=== PATIENT | female | born 1965 | race Caucasian/White ===

== ENCOUNTER → 2017-10-23 07:56 | Outpatient (CLI) | payer OTHER, SELFPAY ==
--- NOTE | 2017-10-23 08:00 | HPBI_ITS ---
MAMMOGRAPHY - BILATERAL SCREENING REASON FOR EXAM: Female, 51 years old. Routine annual screening examination. PERTINENT HISTORY: Personal history of breast cancer. Prior left lumpectomy with radiation and chemotherapy. TECHNIQUE: Digital bilateral breast brandon (3D mammographic acquisition) in the CC and MLO projections. 2-D mediolateral oblique (MLO) and craniocaudad (CC) views of both breasts were obtained. CAD: Full Field Digital Mammography with Computer Added Detection was performed. COMPARISON: Comparison is made with prior examination dated March 26, 2017 and June 20, 2015. FINDINGS: Breast Composition: The breasts are heterogeneously dense, which may obscure small masses. Surgical clips are seen in the deep upper lateral portion of the left breast at the site of prior lumpectomy. There is evidence of architectural distortion and mild breast deformity in keeping with the prior surgery. Stable thickening of the skin of the left breast. There has been no change. No other significant abnormalities are identified. There has been no significant change since the prior study. HPBI/SCREENING MAMM (CAD), BILAT IMPRESSION: Stable bilateral screening mammogram. Yearly follow-up mammogram recommended. (A) ASSESSMENT CATEGORY: BIRADS Category 2: Benign. A letter regarding these results will be sent to the patient by the facility within 30 days. Approximately 10% of breast cancers are not detected by mammography. A normal mammogram should not delay biopsy of a clinically suspicious abnormality. [id number] Electronically Signed: Berto Pan MD at 9:16 EST Tel [phone], Service support ,
== END ==
PROVIDERS: Family Provider Family Medicine; PCP Family Medicine; Visit Provider Family Medicine
DX: Z85.3 Personal history of malignant neoplasm of breast (principal); Z12.31 Encounter for screening mammogram for malignant neoplasm of breast
CPT/HCPCS: 77063; 77067

== ENCOUNTER → 2019-02-10 | Outpatient (CLI) | payer BC, SELFPAY ==
--- NOTE | 2019-02-10 14:49 | BI_ITS ---
MAMMOGRAPHY - BILATERAL SCREENING REASON FOR EXAM: Female, 53 years old. Routine annual screening examination. PERTINENT HISTORY: Personal history of breast cancer. Prior left lumpectomy with radiation and chemotherapy. TECHNIQUE: Digital bilateral breast nancie (3D mammographic acquisition) in the CC and MLO projections. 2-D mediolateral oblique (MLO) and craniocaudad (CC) views of both breasts were obtained. CAD: Full Field Digital Mammography with Computer Added Detection was performed. COMPARISON: Comparison is made with prior study dated October 23, 2017 and September 06, 2016. FINDINGS: Breast Composition: The breasts are heterogeneously dense, which may obscure small masses. There are no dominant masses or suspicious calcifications. Once again, the patient status post lumpectomy in the deep upper outer aspect of the left breast. Postsurgical changes are seen. Overlying skin thickening and breast deformity. No other significant abnormalities are identified. There has been no significant change since the prior study. BI/SCREEN MAMM (CAD) W/NANCIE BILAT IMPRESSION: Stable bilateral screening mammogram. Yearly follow-up mammogram recommended. (A) ASSESSMENT CATEGORY: BIRADS Category 2: Benign. A letter regarding these results will be sent to the patient by the facility within 30 days. Approximately 10% of breast cancers are not detected by mammography. A normal mammogram should not delay biopsy of a clinically suspicious abnormality. [id number] Electronically Signed: Berto Pan, at 16:00 EDT , Service support ,
== END | disposition home or self-care (01) ==
LOC: OPBI 14:47
PROVIDERS: Family Provider Family Medicine; PCP Family Medicine; Referring Provider Family Medicine; Visit Provider Family Medicine
DX: C50.412 Malignant neoplasm of upper-outer quadrant of left female breast (principal); Z12.31 Encounter for screening mammogram for malignant neoplasm of breast; Z17.0 Estrogen receptor positive status [ER+]
CPT/HCPCS: 77063; 77067

== ENCOUNTER → 2020-03-08 12:00 | Outpatient (CLI) | payer BC, SELFPAY | PROVIDERS: PCP Family Medicine; Visit Provider Family Medicine Hospice and Palliative Medicine | DX: Z11.59 Encounter for screening for other viral diseases (principal) | CPT/HCPCS: 87635; G2023; U0003 ==

== ENCOUNTER → 2020-05-06 14:14 | Outpatient (CLI) | payer BC, SELFPAY ==
--- NOTE | 2020-05-06 14:27 | BI_ITS ---
MAMMOGRAPHY - BILATERAL SCREENING REASON FOR EXAM: Female, 54 years old. Routine annual screening examination. PERTINENT HISTORY: Personal history of breast cancer. Prior left lumpectomy with chemotherapy and radiation therapy. TECHNIQUE: Digital bilateral breast nancie (3D mammographic acquisition) in the CC and MLO projections. 2-D mediolateral oblique (MLO) and craniocaudad (CC) views of both breasts were obtained. CAD: Full Field Digital Mammography with Computer Added Detection was performed. COMPARISON: Comparison is made with prior study dated 02/10/2019 and 10/23/2017. FINDINGS: Breast Composition: The breasts are heterogeneously dense, which may obscure small masses. There are no dominant masses or suspicious calcifications. Stable deformity and architectural distortion in the upper lateral portion of the left breast with overlying skin thickening and skin changes. Stable small benign-appearing bilateral axillary lymph nodes. No other significant abnormalities are identified. There has been no significant change since the prior study. BI/SCREEN MAMM (CAD) W/NANCIE BILAT IMPRESSION: Stable bilateral screening mammogram. Yearly follow-up mammogram recommended. (A) ASSESSMENT CATEGORY: BIRADS Category 2: Benign. A letter regarding these results will be sent to the patient by the facility within 30 days. Approximately 10% of breast cancers are not detected by mammography. A normal mammogram should not delay biopsy of a clinically suspicious abnormality. [id number] Electronically Signed: Berto Pan, at 15:19 EDT , Service support ,
== END ==
PROVIDERS: PCP Family Medicine; Referring Provider Nurse Practitioner Women's Health; Visit Provider Nurse Practitioner Women's Health
DX: Z12.31 Encounter for screening mammogram for malignant neoplasm of breast (principal)
CPT/HCPCS: 77063; 77067

== ENCOUNTER 2020-07-15 18:40 | Emergency (ER) | payer BC, SELFPAY ==
[2020-07-15 18:41] VITALS: BP 183/92; PULSE 88; RESP 16; TEMP 36.3; O2SAT 99; BMI 29.2
--- NOTE | 2020-07-15 19:43 | CT_ITS ---
STUDY: CT ABDOMEN AND PELVIS WITHOUT CONTRAST REASON FOR EXAM: Female, 54 years old. RT FLANK PAIN, ONSET LAST NIGHT. RADIATION DOSAGE (If Supplied By Facility): CTDIvol = ( 11.42 ) mGy, DLP = ( 567.96 ) mGycm TECHNIQUE: Transaxial images were obtained from the dome of the diaphragm to the symphysis pubis without oral contrast, and without intravenous contrast. Sagittal and coronal images were reconstructed. Individualized dose optimization techniques were used for this CT. COMPARISON: None. FINDINGS: The visualized lung bases are unremarkable. The visualized portions of the heart are within normal limits. Multiple small simple cysts of the liver. Otherwise normal liver. Normal gallbladder and extrahepatic biliary system. Normal spleen. Normal pancreas. Normal bilateral adrenal glands. Normal size of the right kidney without hydronephrosis or stones. Slight fullness of the right renal pelvis and proximal ureter with slight stranding around the ureter. Normal left kidney. Normal visualized stomach. Normal small intestine. Normal colon. The appendix is visualized and appears normal. Normal abdominal aorta. Normal inferior vena cava. Normal retroperitoneum. Normal urinary bladder. One small bubble of air in the urinary bladder most likely secondary to catheterization. Negative for bladder wall thickening or perivesicular stranding. Negative for pelvic mass or free fluid of the pelvis. Multiple surgical clips at the cornu of the uterus on the right side. Normal abdominal wall. There are diffuse degenerative changes of the visualized lumbar spine. CT/Abdomen/Pelvis without Cont IMPRESSION: Normal size of the kidneys bilaterally without hydronephrosis, renal, ureteral or bladder stones. Slight prominence of the right renal pelvis and proximal ureter with slight stranding in the periureteral fat and peripelvic fat can correlate with acute pyelonephritis. Normal left kidney. Several simple hepatic cysts. No additional imaging recommended. Otherwise normal abdominal and pelvic CT exam. Electronically Signed: Magaly Lundy MD at 20:34 EST , Service support ,
--- NOTE | 2020-07-15 19:46 | ED.DCSUM_ITS ---
- ER Visit Summary Date of Service: 07/15/20 Chief Complaint: Right flank pain History of Present Illness: The patient is a 54 F who presents with right flank pain that began yesterday. Patient states it began her right flank area. Patient states today she noted some pain in her right lower abdomen. Patient describes her pain as sharp and stabbing. Patient states the pain waxes and wanes but is constant. Patient states nothing makes it worse. Patient states it is better when she walks. Patient denies any nausea or vomiting. Patient states she still has a good appetite. Patient denies any dysuria or hematuria. Patient denies any fevers or chills. Physical Examination: Vital signs are stable. Patient is afebrile. Patient is in no acute distress. Oral mucosa is pink and moist. Neck is supple. Trachea is midline. There is no JVD. Heart was regular rate and rhythm. Lungs are clear and equal bilaterally. Abdomen is soft. Bowel sounds are normal. There is some mild right lower quadrant tenderness. There is no rebound or guarding noted. Rovsing sign was negative. Obturator sign was negative. There is some right CVA tenderness. Cranial nerves II through XII are intact. There are no focal motor or sensory deficits noted. Extremities are intact. There is no calf tenderness or edema. Test Results: CBC shows a mild leukocytosis of 11.1. Basic metabolic profile was within normal limits. Urinalysis shows leukocyte esterase of 500 with 50- [address] scan of the abdomen and pelvis was obtained. There is mild prominence of the right renal pelvis and right proximal ureter. There is mild stranding in the periureteral and perinephric fat. This may be consistent with pyelonephritis. This was interpreted by the radiologist and reviewed by myself. Emergency Department Course and Treatment: Patient was given IV fluids and Rocephin here. Patient was given a prescription for Cipro. Patient was instructed to drink plenty of fluids. Patient was instructed to follow-up with her primary care physician in 3-5 days. Patient understood and was agreeable with the plan. All questions were answered. Disposition: Discharge home Impression: Right pyelonephritis This note was generated with [employer] dictation software. It may contain incorrect words, spelling, and punctuation that were not noted in review of the chart prior to signing ED Disposition - Plan for ED Patient: Disposition: Home or Assisted Living Diagnosis: Pyelonephritis of right kidney Instructions: ED Pyelonephritis Female Adult Prescriptions: Ciprofloxacin [Cipro] 500 mg PO BID #14 tab Prescription Printed Referrals: Dario Prasad III, MD [Primary Care Provider] - 3-5 Days
[2020-07-15 19:54] LABS: Mucous, Urine 0 SEEN /hpf (<or=2+)
[2020-07-15] MEDS: Ketorolac 30 MG/ML Syringe IV (19:54)
[2020-07-15 19:57] LABS: Color, Urine Yellow (Yellow); Glucose, Dipstick Normal (Normal); Ketone-Dipstick Negative (Negative); Leukocyte Esterase-Dipstick 500 /ul (Negative); Nitrite-Dipstick Negative (Negative); Occult Blood-Urine 50 /ul (Negative); Protein-Dipstick 30 mg/dl (Negative); Urine Bilirubin Dipstick Negative (Negative); Urine Clarity Sl. Cloudy (Clear); Urine Urobilinogen Normal (Normal); Urine pH 6.5 (5.0 - 8.0)
[2020-07-15 20:04] LABS: Absolute Lymphocyte Count 1.78 X10^3/uL (0.83-4.51); Absolute Neutrophil Count 8.4 X10^3/uL (2.0-7.7); Basophil# 0.03 X10^3/uL; Basophil% 0.3 % (0-1); Eosinophil# 0.02 X10^3/uL; Eosinophils% 0.2 % (0-5); Hematocrit 39.4 % (37-47); Lymphocyte # 1.78 X10^3/ul (4.0); Mean Corpuscular Hgb 28.8 pg (27.0-32.0); Mean Corpuscular Volume 87.2 fL (81-99); Monocyte# 0.86 X10^3/uL; Monocyte% 7.7 % (0-10); NRBC Flagged by Analyzer 0 % (0-5); Neutrophil % 75.4 % (47-70); Platelet Count 256 K/mm3 (150-450); RBC Distribution Width CV 12.4 % (11.6-14.6); Red Blood Count 4.52 M/mm3 (4.2-5.4); White Blood Count 11.1 K/mm3 (4.4-11.0)
[2020-07-15] MEDS: 0.9% Normal Saline 1,000 ML 250 ML IV (20:05)
[2020-07-15 20:37] LABS: Anion Gap 7 (5-15); BUN 14 mg/dL (7-18); BUN/Creat Ratio 16.8 RATIO (10-20); Calcium,Total 8.8 mg/dL (8.5-10.1); Chloride 104 mmol/L (98-107); Creatinine, Serum 0.83 mg/dL (0.55-1.02); EST Glomerular Filtration Rate 76 mL/min (>60); Est Glom Filt Rate - Afr Amer 92 mL/min (>60); Estimated Creatinine Clearance 68.47 ml/min; Glucose 107 mg/dL (74-106); Potassium 3.7 mmol/L (3.5-5.1); Sodium Level 139 mmol/L (136-145)
[2020-07-15 20:40] LABS: Bacteria 4+ /hpf (None Seen); Hyaline Cast 0-5 SEEN /lpf (0-5); White Blood Cells 50-100 SEEN /hpf (0-5)
[2020-07-15 20:42] LABS: Red Blood Cells-Urine 0-5 SEEN /hpf (0-5); Squamous Epithelial Cells - UA 0-5 SEEN /hpf (5-10)
[2020-07-15 20:45] LABS: Transitional Epithelial - Ur 0-5 SEEN /hpf (0-5)
[2020-07-15] MEDS: Ceftriaxone 1 GM/50 ML BAG IV (21:40)
[2020-07-15 22:18] VITALS: BP 150/74; PULSE 68; RESP 14; O2SAT 98
== END 2020-07-15 22:18 | disposition home or self-care (01) ==
PROVIDERS: Emergency Provider Emergency Medicine; PCP Family Medicine
DX: N10 Acute pyelonephritis (principal); M79.7 Fibromyalgia; Z85.3 Personal history of malignant neoplasm of breast
CPT/HCPCS: 74176; 80048; 81001; 85025; 96361; 96365; 96375; 99284; J7030; A4216

== ENCOUNTER → 2021-06-02 15:04 | Outpatient (CLI) | payer BC, SELFPAY ==
--- NOTE | 2021-06-02 15:05 | BI_ITS ---
MAMMOGRAPHY - BILATERAL SCREENING 3-D TOMOSYNTHESIS REASON FOR EXAM: Female, 55 years old. Breast cancer screening PERTINENT HISTORY: No significant family history. TECHNIQUE: 2-D mammograms and 3-D Tomosynthesis of the breast (s) were performed. CAD was performed. COMPARISON: 05/06/2020 FINDINGS: The breast composition is Extermely dense tissue. Scattered benign calcifications are seen. No dense spiculated masses or suspicious microcalcifications are identified. No architectural distortion is identified. There is no skin thickening or retraction. There has been no significant change since the prior study. Lumpectomy changes in the upper outer quadrant left breast. BI/SCRN MAMM (CAD)W/NANCIE BILAT IMPRESSION: No mammographic signs of malignancy. Routine yearly mammograms recommended. ASSESSMENT CATEGORY: BIRADS Category 2: Benign. A letter regarding these results will be sent to the patient by the facility within 30 days. FOLLOW UP RECOMMENDATION: Yearly follow up mammogram recommended. (A) Approximately 10% of breast cancers are not detected by mammography. A normal mammogram should not delay biopsy of a clinically suspicious abnormality. Electronically Signed: Bernardino Bar MD at 10:50 EDT Tel , Service support ,
== END ==
PROVIDERS: PCP Family Medicine; Referring Provider Nurse Practitioner Women's Health; Visit Provider Nurse Practitioner Women's Health
DX: Z12.31 Encounter for screening mammogram for malignant neoplasm of breast (principal)
CPT/HCPCS: 77063; 77067

== ENCOUNTER → 2022-06-06 | Outpatient (CLI) | payer BC, SELFPAY ==
--- NOTE | 2022-06-06 07:20 | BI_ITS ---
MAMMOGRAPHY - BILATERAL SCREENING REASON FOR EXAM: Female, 56 years old. Routine annual screening examination. PERTINENT HISTORY: Personal history of breast cancer. Prior left lumpectomy and radiation treatment. TECHNIQUE: Digital bilateral breast nancie (3D mammographic acquisition) in the CC and MLO projections. 2-D mediolateral oblique (MLO) and craniocaudad (CC) views of both breasts were obtained. CAD: Full Field Digital Mammography with Computer Added Detection was performed. COMPARISON: Comparison is made with prior study dated 06/02/2021 and 05/06/2020. FINDINGS: Breast Composition: The breasts are heterogeneously dense, which may obscure small masses. There are no dominant masses or suspicious calcifications. The patient is status post lumpectomy in the deep upper lateral aspect of the left breast with resultant of postoperative scarring and deformity. This is unchanged. Stable small benign-appearing axillary lymph nodes. No other significant abnormalities are identified. There has been no significant change since the prior study. BI/SCRN MAMM (CAD)W/NANCIE BILAT IMPRESSION: Stable bilateral screening mammogram. Yearly follow-up mammogram recommended. (A) ASSESSMENT CATEGORY: BIRADS Category 2: Benign. A letter regarding these results will be sent to the patient by the facility within 30 days. Approximately 10% of breast cancers are not detected by mammography. A normal mammogram should not delay biopsy of a clinically suspicious abnormality. [id number] Electronically Signed: Berto Pan MD at 8:30 EDT ,
== END | disposition home or self-care (01) ==
LOC: OPBI 07:17
PROVIDERS: PCP Family Medicine; Visit Provider Family Medicine
DX: Z12.31 Encounter for screening mammogram for malignant neoplasm of breast (principal); Z85.3 Personal history of malignant neoplasm of breast
CPT/HCPCS: 77063; 77067

== ENCOUNTER → 2023-06-13 | Outpatient (CLI) | payer BC, SELFPAY ==
--- NOTE | 2023-06-13 07:54 | BI_ITS ---
MAMMOGRAPHY - BILATERAL SCREENING REASON FOR EXAM: Female, 57 years old. Routine annual screening examination. PERTINENT HISTORY: Personal history of breast cancer. Prior left lumpectomy with radiation and chemotherapy. TECHNIQUE: Digital bilateral breast nancie (3D mammographic acquisition) in the CC and MLO projections. 2-D mediolateral oblique (MLO) and craniocaudad (CC) views of both breasts were obtained. CAD: Full Field Digital Mammography with Computer Added Detection was performed. COMPARISON: Comparison is made with prior study done June 06, 2022 and June 02, 2021. FINDINGS: Breast Composition: The breasts are heterogeneously dense, which may obscure small masses. There are no dominant masses or suspicious calcifications. Once again, the patient is status post lumpectomy in the deep upper lateral aspect of the left breast with resultant architectural distortion and breast deformity. A surgical clip is also seen in the left axilla. No other significant abnormalities are identified. There has been no significant change since the prior study. BI/SCRN MAMM (CAD)W/NANCIE BILAT IMPRESSION: Stable bilateral screening mammogram. Yearly follow-up mammogram recommended. (A) ASSESSMENT CATEGORY: BIRADS Category 2: Benign. A letter regarding these results will be sent to the patient by the facility within 30 days. Approximately 10% of breast cancers are not detected by mammography. A normal mammogram should not delay biopsy of a clinically suspicious abnormality. [id number] Electronically Signed: Berto Pan MD at 12:23 EDT ,
== END | disposition home or self-care (01) ==
LOC: OPBI 07:53
PROVIDERS: PCP Family Medicine; Referring Provider Nurse Practitioner Women's Health; Visit Provider Nurse Practitioner Women's Health
DX: Z12.31 Encounter for screening mammogram for malignant neoplasm of breast (principal); Z85.3 Personal history of malignant neoplasm of breast
CPT/HCPCS: 77063; 77067

== ENCOUNTER → 2023-08-05 | Outpatient (CLI) | payer BC, SELFPAY ==
[2023-08-08 09:09] LABS: HPV APTIMA, High Risk Negative (Negative)
== END | disposition home or self-care (01) ==
LOC: LAB 11:31 → LABSPEC 11:31
PROVIDERS: PCP Family Medicine; Referring Provider Nurse Practitioner Women's Health; Visit Provider Nurse Practitioner Women's Health
DX: Z12.4 Encounter for screening for malignant neoplasm of cervix (principal)
CPT/HCPCS: 87624; 88175; G0145

== ENCOUNTER → 2024-06-30 | Outpatient (CLI) | payer BC, SELFPAY ==
--- NOTE | 2024-06-30 09:55 | BI_ITS ---
MAMMOGRAPHY - BILATERAL SCREENING REASON FOR EXAM: Female, 58 years old. Routine annual screening examination. PERTINENT HISTORY: Personal history of breast cancer. Prior left lumpectomy and radiation. TECHNIQUE: Digital bilateral breast nancie (3D mammographic acquisition) in the CC and MLO projections. 2-D mediolateral oblique (MLO) and craniocaudad (CC) views of both breasts were obtained. CAD: Full Field Digital Mammography with Computer Added Detection was performed. COMPARISON: Comparison is made with prior study dated June 13, 2023 and June 06, 2022. FINDINGS: Breast Composition: The breasts are heterogeneously dense, which may obscure small masses. There are no dominant masses or suspicious calcifications. The patient is status post lumpectomy in the deep upper lateral aspect of the left breast with resultant deformity of the left breast and overlying skin thickening most likely secondary to prior radiation. Surgical clips seen in the left axilla. No other significant abnormalities are identified. There has been no significant change since the prior study. BI/SCRN MAMM (CAD)W/NANCIE BILAT IMPRESSION: Stable bilateral screening mammogram. Yearly follow-up mammogram recommended. (A) ASSESSMENT CATEGORY: BIRADS Category 2: Benign. A letter regarding these results will be sent to the patient by the facility within 30 days. Approximately 10% of breast cancers are not detected by mammography. A normal mammogram should not delay biopsy of a clinically suspicious abnormality. [id number] Electronically Signed: Berto Pan MD at 11:54 EDT ,
--- OUTSIDE RECORDS SUMMARY | 2024-06-30 11:19 | XMS RPT_ITS | CCD ---
Author Organization [facility] Care Team Providers Care Oncology Navigator Name Role Phone Danial Polo MD Primary Care Provider DANIAL POLO Referring Unavailable DANIAL POLO Primary Care Unavailable Danial Polo MD Primary Care Provider Danial Polo MD Primary Care Provider DANIAL POLO Primary Care Unavailable SYLVIE DECKER Attending Unavailable DANIAL POLO Attending Unavailable DANIAL POLO Primary Care Unavailable DANIAL POLO Referring Unavailable DANIAL POLO Primary Care Unavailable DANIAL POLO Primary Care Unavailable ANA LAURA GRACE Attending Unavailable DANIAL POLO Referring Unavailable DANIAL POLO Attending Unavailable DANIAL POLO Primary Care Unavailable Medications Current Medications Medication Drug Class(es) Dates Sig (Normalized) Sig (Original) CPAP (8 sources) Start: 12-05-2022 CPAP Indications: LORI (obstructive sleep apnea) Initiate Auto PAP @ 9-20 cm of water with humidification. Mask (per patient preference) optional chin strap (if indicated) , filters, tubing, humidifier and lifetime supplies. 1 Each 0 12/05/2022 Active Comment on above: Initiate Auto PAP @ 9-20 cm of water with humidification. Mask (per patient preference) optional chin strap (if indicated) , filters, tubing, humidifier and lifetime supplies. 24 hr desvenlafaxine succinate 50 mg extended release oral tablet (6 sources) Serotonin and Norepinephrine Reuptake Inhibitor Start: 03-23-2024 End: 03-23-2024 take 1 tablet by mouth once daily desvenlafaxine ER (PRISTIQ) 100 mg 24 hr tablet Take 1 tablet by mouth once daily. 30 tablet 5 03/23/2024 03/23/2024 Discontinued Start: 09-27-2023 End: 03-23-2025 take 2 tablets by mouth once daily desvenlafaxine ER (PRISTIQ) 50 mg 24 hr tablet Indications: Fibromyalgia Take 2 tablets by mouth once daily. 90 tablet 3 03/23/2024 03/23/2025 Active Comment on above: Take 2 tablets by mo uth once daily. Take 1 tablet by melly th once daily. losartan potassium 100 mg oral tablet (20 sources) Angiotensin 2 Receptor Darell Start: End: take 1 tablet by mouth once daily losartan (COZAAR) 100 mg tablet Indications: Primary hypertension Take 1 tablet by mouth once daily. 90 tablet 3 03/23/2024 03/23/2025 Active Start: 03-23-2024 End: 03-23-2024 take 2 tablets by mouth once daily losartan (COZAAR) 50 mg tablet Indications: Primary hypertension Take 2 tablets by mouth once daily. 180 tablet 3 03/23/2024 03/23/2024 Discontinued Start: 09-27-2023 End: 03-25-2024 take 1 tablet by mouth once daily losartan (COZAAR) 50 mg tablet Take 1 tablet by mouth once daily. 30 tablet 5 03/23/2024 03/23/2024 Discontinued Start: 03-27-2023 End: 09-23-2023 take 1 tablet by mouth once daily losartan (COZAAR) 50 mg tablet Take 1 tablet by mouth once daily. 30 tablet 5 03/27/2023 09/23/2023 Active Start: 10-23-2022 take 1 tablet by melly th once daily losartan (COZAAR) 50 mg tablet Take 1 tablet by mouth once daily. 30 tablet 2 10/23/2022 Active Start: 09-24-2022 End: 09-24-2023 take 1 tablet by mouth once daily losartan (COZAAR) 25 mg tablet Indications: Primary hypertension Take 1 tablet by mouth once daily. 30 tablet 11 09/24/2022 09/24/2023 Active Comment on above: Take 1 tablet by melly th once daily. perflutren lipid microspheres 1.3 mL in NaCl (PF) 0.9% 10 mL injection (DEFINITY) (17 sources) Start: 03-22-20 End: 06-21-20 perflutren lipid microspheres 1.3 mL in NaCl (PF) 0.9% 10 mL injection (DEFINITY) 125 ml sodium chloride 9 mg/ml prefilled syringe (17 sources) Start: 03-22-20 End: 06-21-20 sodium chloride 0.9 % (flush) 10 mL (BD POSIFLUSH) 24 hr venlafaxine 150 mg extended release oral capsule (20 sources) Serotonin and Norepinephrine Reuptake Inhibitor Start: 03-27-20 End: 09-23-19 take 1 capsule by mouth once daily venlafaxine ER (EFFEXOR XR) 150 mg 24 hr capsule Indications: Fibromyalgia , Central pain syndrome Take 1 capsule by mouth once daily. 30 capsule 5 03/27/2023 09/23/2023 Active Start: 04-30-2022 End: 07-25-2022 take 1 capsule by mouth once daily venlafaxine ER (EFFEXOR XR) 150 mg 24 hr capsule Indications: Central pain syndrome , Fibromyalgia Take 1 capsule by mouth once daily. 90 capsule 3 07/25/2022 Active Start: 08-29-2021 End: 04-28-2022 take 1 capsule by mouth once daily venlafaxine ER (EFFEXOR XR) 150 mg 24 hr capsule Indications: Central pain syndrome , Fibromyalgia Take 1 capsule by mouth once daily. 90 capsule 3 08/29/2021 04/28/2022 Discontinued Comment on above: Take 1 capsule by [facility] once daily. Completed/Discontinued Medications Medication Drug Class(es) Dates Sig (Normalized) Sig (Original) cholecalciferol 0.05 mg oral tablet (19 sources) Vitamin D take 1 tablet by mouth once daily cholecalciferol (VITAMIN D3) 50 mcg (2,000 unit) tablet Take 1 tablet by mouth once daily. 0 Active Comment on above: [facility] polyethylene glycol 3350 681657 mg / potassium chloride 2970 mg / sodium bicarbonate 6740 mg / sodium chloride 5860 mg / sodium sulfate 28330 mg powder for oral solution (3 sources) Osmotic Laxative Start: 03-28-2022 End: 04-20-2022 peg 3350-Electrolytes (GOLYTELY) 236-22.74-6.74 -5.86 gram suspension Indications: Screening for colon cancer Refer to printed prep instructions from your provider. 4000 mL 0 03/28/2022 04/20/2022 Discontinued Comment on above: Refer to printed pre p instructions from your provider. Problems Active Problems Problem Classification Problem Date Documented Date Episodic/Chronic Cancer of breast (20 sources) Malignant neoplasm of upper-outer quadrant of female breast; Translations: [Malignant neoplasm of upper-outer quadrant of unspecified female breast] Onset: 11-05-2007 06-13-2010 Chronic Disorders of lipid metabolism (20 sources) Hyperlipidemia; Translations: [Hyperlipidemia, unspecified] Onset: 10-11-2016 Chronic Essential hypertension (10 sources) Essential hypertension; Translations: [Essential (primary) hypertension] Onset: 03-27-2023 Chronic Immunizations and screening for infectious disease (6 sources) Patient encounter status; Translations: [Encounter for screening for human immunodeficiency virus [HIV]] Episodic Nutritional deficiencies (20 sources) Vitamin D deficiency; Translations: [Vitamin D deficiency, unspecified] Onset: 12-08-2008 Resolved: 12-08-2008 Chronic Other and unspecified benign neoplasm (1 source) History of polyp of colon; Translations: [Personal history of colonic polyps] Episodic Residual codes; unclassified (3 sources) Obstructive sleep apnea syndrome; Translations: [Obstructive sleep apnea (adult) (pediatric)] Chronic Residual codes; unclassified (1 source) Obstructive sleep apnea (adult) (pediatric); Translations: [LORI (obstructive sleep apnea)] Onset: 11-30-2022 Chronic Residual codes; unclassified (1 source) Primary central sleep apnea; Translations: [Central sleep apnea] Onset: 11-30-2022 Chronic Residual codes; unclassified (7 sources) Sleep apnea; Translations: [Sleep apnea, unspecified] Onset: 11-30-2022 03-27-2023 Chronic Residual codes; unclassified (1 source) Sleep apnea, unspecified; Translations: [Sleep apnea, unspecified type] Onset: 03-27-2023 Chronic Past or Other Problems Problem Classification Problem Date Documented Date Episodic/Chronic Cancer of breast (20 sources) History of malignant neoplasm of breast; Translations: [Personal history of malignant neoplasm of breast] Onset: 11-15-2015 Episodic Heart valve disorders (20 sources) Functional heart murmur ; Translations: [Benign and innocent cardiac murmurs] Onset: 03-22-2022 Episodic Malignant neoplasm without specification of site (10 sources) Malignant adenomatous neoplasm; Translations: [Malignant (primary) neoplasm, unspecified] Onset: 04-12-2022 Resolved: 09-27-2023 10-23-2022 Chronic Nonmalignant breast conditions (2 sources) Breast lump; Translations: [Unspecified lump in unspecified breast] Onset: 10-31-2007 Resolved: 04-01-2009 04-01-2009 Episodic Other and unspecified benign neoplasm (16 sources) Benign adenomatous neoplasm; Translations: [Benign neoplasm, unspecified site] Onset: 09-24-2022 Episodic Other and unspecified benign neoplasm (1 source) Benign neoplasm, unspecified site; Translations: [Tubulovillous adenoma] Onset: 09-27-2023 Episodic Other connective tissue disease (20 sources) Fibromyalgia; Translations: [Fibromyalgia] Onset: 10-03-2017 Episodic Other connective tissue disease (2 sources) Enthesopathy of hip region; Translations: [Other specified enthesopathies of unspecified lower limb, excluding foot] Onset: 06-04-2008 Resolved: 09-26-2021 09-26-2021 Episodic Other connective tissue disease (2 sources) Muscle pain; Translations: [Myalgia, unspecified site] Onset: 12-12-2009 Resolved: 09-26-2021 09-26-2021 Episodic Other connective tissue disease (1 source) Fibromyalgia; Translations: [Fibromyalgia] Onset: 10-03-2017 Episodic Other nervous system disorders (5 sources) Central pain syndrome; 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] Onset: 11-15-2015 Resolved: 09-26-2021 Chronic Other nervous system disorders (2 sources) Median nerve entrapment; Translations: [Carpal tunnel syndrome, unspecified upper limb] Onset: 01-23-2011 Resolved: 09-26-2021 09-26-2021 Chronic Sprains and strains (2 sources) Strain of muscle of lower limb; Translations: [Strain of unspecified muscle(s) and tendon(s) at lower leg level, left leg, initial encounter] Onset: 11-15-2015 Resolved: 09-26-2021 09-26-2021 Episodic Urinary tract infections (10 sources) Pyelonephritis; Translations: [Tubulo-interstitial nephritis, not specified as acute or chronic] Onset: 10-23-2022 Resolved: 09-27-2023 10-23-2022 Episodic Results Test Name Value Interpretation Reference Range Facility [facility] 03-30-2024 [facility] Telephone (FAMPWS) MOLLY BABB ([id number]) 1965 F Date Time Provider Department 03/30/24 DANIAL POLO [facility] During your visit today, we recorded the following information about you: Danial Polo MD 03/30/2024 10:31 AM Signed Cholesterol is improving. Vit d is high. Is she taking any vitamins or supplements with vit d in them? Cydney Aguilar LPN 03/30/2024 10:46 AM Signed Vitamin D 5000 units twice a week. Has been taking since dx with breast cancer. Patient states that she will cut back to once weekly. Advised that will contact her back with additional instructions. Danial Polo MD 03/30/2024 10:47 AM Signed Recheck level in two weeks. Sakina Rubin MA 03/30/2024 11:49 AM Signed Called and left message on patients voicemail to return call to the office and ask to speak with a triage nurse. Please relay information below. JE Singh Kathryn, MA 03/31/2024 9:54 AM Signed Pt notified and voiced understanding. Odette Reno MA Allergies As of Date: 03/30/2024 (No Known Allergies) Date Reviewed: 03/23/2024 Reviewed by: Cydney Aguilar LPN - Fully Assessed Reason for Visit: Results [95] Primary Visit Diagnosis:Vitamin D deficiency [E55.9] Order(s):VITAMIN D 25 HYDROXY [SQVITD] Order #: [id number] FUTURE Prescriptions as of 03/31/2024 - desvenlafaxine ER (PRISTIQ) 50 mg 24 hr tablet Take 2 tablets by mouth once daily. - losartan (COZAAR) 100 mg tablet Take 1 tablet by mouth once daily. - CPAP Initiate Auto PAP @ 9-20 cm of water with humidification. Mask (per patient preference) optional chin strap (if indicated) , filters, tubing, humidifier and lifetime supplies. 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] 11/15/2015 09/26/2021 Strain of left knee and leg [S86.912A] 11/15/2015 09/26/2021 History of breast cancer in female [Z85.3] 11/15/2015 Hyperlipidemia LDL goal <130 [E78.5] 10/11/2016 Fibromyalgia [M79.7] 10/03/2017 Heart murmur [R01.1] 03/22/2022 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] 09/24/2022 Pyelonephritis [N12] 10/23/2022 09/27/2023 Tubular adenocarcinoma (HCC) [C80.1] 04/12/2022 09/27/2023 Sleep apnea [G47.30] 11/30/2022 Primary hypertension [I10] 03/27/2023 Encounter Status:Closed by ODETTE RENO on 03/31/24 Normal [facility] 25(OH)D3 Maricel-braden 2023 25-hydroxyvitamin D3 [Mass/Vol] 80.6 ng/mL High 31.0-80.0 [facility] Comment on above: Order Comment: Speci men Type: BLOOD SPECIMEN Ordering Facility: [facility] Address: [address] [place] [address] Performed By: #### 2 4323-8, 38031-4 #### [facility] CLIA [id number] [address] [place] [address] [place] CBC W Auto Differential pane l (Bld)on 03-27-2024 Basophils (Bld) [#/Vol] 0.06 10*3/uL Normal <0.11 [facility] Comment on above: Order Comment: Speci men Type: BLOOD SPECIMEN Ordering Facility: [facility] Address: [address] [place] [address] Performed By: #### 2 4323-8, 60481-2 #### [facility] CLIA [id number] [address] [place] [address] [place] Basophils/100 WBC (Bld) 1.0 % Normal [facility] Comment on above: Order Comment: Speci men Type: BLOOD SPECIMEN Ordering Facility: [facility] Address: [address] [place] [address] Performed By: #### 2 4323-8, 58863-1 #### [facility] CLIA [id number] [address] [place] [address] [place] Differential cell count method Nom (Bld) Auto Normal [facility] Comment on above: Order Comment: Speci men Type: BLOOD SPECIMEN Ordering Facility: [facility] Address: [address] [place] [address] Performed By: #### 2 4323-8, 75415-1 #### [facility] CLIA [id number] [address] [place] [address] [place] Eosinophils (Bld) [#/Vol] 0.22 10*3/uL Normal <0.46 [facility] Comment on above: Order Comment: Speci men Type: BLOOD SPECIMEN Ordering Facility: [facility] Address: [address] [place] [address] Performed By: #### 2 4323-8, 01314-0 #### [facility] CLIA [id number] [address] [place] [address] [place] Eosinophils/100 WBC (Bld) 3.6 % Normal [facility] Comment on above: Order Comment: Speci men Type: BLOOD SPECIMEN Ordering Facility: [facility] Address: [address] [place] [address] Performed By: #### 2 4323-8, 01556-2 #### [facility] CLIA [id number] [address] [place] [address] [place] Erythrocyte distribution width (RBC) [Ratio] 13.1 % Normal 11.5-15.0 [facility] Comment on above: Order Comment: Speci men Type: BLOOD SPECIMEN Ordering Facility: [facility] Address: [address] [address] Performed By: #### 2 4323-8, 60026-7 #### [facility] CLIA [id number] [address] [place] [address] [place] Hematocrit (Bld) [Volume fraction] 42.6 % Normal 36.0-46.0 [facility] Comment on above: Order Comment: Speci men Type: BLOOD SPECIMEN Ordering Facility: [facility] Address: [address] [place] [address] Performed By: #### 2 4323-8, 89938-1 #### [facility] CLIA [id number] [address] [place] [address] [place] Hemoglobin (Bld) [Mass/Vol] 13.8 g/dL Normal 11.5-15.5 [facility] Comment on above: Order Comment: Speci men Type: BLOOD SPECIMEN Ordering Facility: [facility] Address: [address] [address] Performed By: #### 2 4323-8, 45880-3 #### [facility] CLIA [id number] [address] [place] [address] [place] Immature granulocytes (Bld) [#/Vol] 10*3/uL Normal <0.10 [facility] Comment on above: Order Comment: Speci men Type: BLOOD SPECIMEN Ordering Facility: [facility] Address: [address] [place] [address] Performed By: #### 2 4323-8, 50928-4 #### [facility] CLIA [id number] [address] [place] [address] [place] Immature granulocytes/100 WBC (Bld) 0.3 % Normal [facility] Comment on above: Order Comment: Speci men Type: BLOOD SPECIMEN Ordering Facility: [facility] Address: [address] [place] [address] Performed By: #### 2 4323-8, 41194-4 #### [facility] CLIA [id number] [address] [place] [address] [place] Lymphocytes (Bld) [#/Vol] 2.10 10*3/uL Normal 1.00-4.00 [facility] Comment on above: Order Comment: Speci men Type: BLOOD SPECIMEN Ordering Facility: [facility] Address: [address] [address] Performed By: #### 2 4323-8, 08102-2 #### [facility] CLIA [id number] [address] [place] [address] [place] Lymphocytes/100 WBC (Bld) 34.0 % Normal [facility] Comment on above: Order Comment: Speci men Type: BLOOD SPECIMEN Ordering Facility: [facility] Address: [address] [place] [address] Performed By: #### 2 4323-8, 01623-2 #### [facility] CLIA [id number] [address] [place] [address] [place] MCH (RBC) [Entitic mass] 28.7 pg Normal 26.0-34.0 [facility] Comment on above: Order Comment: Speci men Type: BLOOD SPECIMEN Ordering Facility: [facility] Address: [address] [address] Performed By: #### 2 4323-8, 17521-5 #### [facility] CLIA [id number] [address] [place] [address] [place] MCHC (RBC) [Mass/Vol] 32.4 g/dL Normal 30.5-36.0 [facility] Comment on above: Order Comment: Speci men Type: BLOOD SPECIMEN Ordering Facility: [facility] Address: [address] [place] [address] Performed By: #### 2 4323-8, 13495-6 #### [facility] CLIA [id number] [address] [place] [address] [place] MCV (RBC) [Entitic vol] 88.6 fL Normal 80.0-100.0 [facility] Comment on above: Order Comment: Speci men Type: BLOOD SPECIMEN Ordering Facility: [facility] Address: [address] [place] [address] Performed By: #### 2 4323-8, 40367-8 #### [facility] CLIA [id number] [address] [place] [address] [place] Monocytes (Bld) [#/Vol] 0.52 10*3/uL Normal <0.87 [facility] Comment on above: Order Comment: Speci men Type: BLOOD SPECIMEN Ordering Facility: [facility] Address: [address] [place] [address] Performed By: #### 2 4323-8, 35713-6 #### [facility] CLIA [id number] [address] [place] [address] [place] Monocytes/100 WBC (Bld) 8.4 % Normal [facility] Comment on above: Order Comment: Speci men Type: BLOOD SPECIMEN Ordering Facility: [facility] Address: [address] [place] [address] Performed By: #### 2 4323-8, 24400-2 #### [facility] CLIA [id number] [address] [place] [address] [place] Neutrophils (Bld) [#/Vol] 3.25 10*3/uL Normal 1.45-7.50 [facility] Comment on above: Order Comment: Speci men Type: BLOOD SPECIMEN Ordering Facility: [facility] Address: [address] [place] [address] Performed By: #### 2 4323-8, 25201-8 #### [facility] CLIA [id number] [address] [place] [address] [place] Neutrophils/100 WBC (Bld) 52.7 % Normal [facility] Comment on above: Order Comment: Speci men Type: BLOOD SPECIMEN Ordering Facility: [facility] Address: [address] [place] [address] Performed By: #### 2 4323-8, 92836-0 #### [facility] CLIA [id number] [address] [place] [address] [place] Nucleated RBC (Bld) [#/Vol] 10*3/uL Normal <0.01 [facility] Comment on above: Order Comment: Speci men Type: BLOOD SPECIMEN Ordering Facility: [facility] Address: [address] [place] [address] Performed By: #### 2 4323-8, 89323-4 #### [facility] CLIA [id number] [address] [place] [address] [place] Nucleated RBC/100 WBC (Bld) [Ratio] 0.0 /100 WBC Normal [facility] Comment on above: Order Comment: Speci men Type: BLOOD SPECIMEN Ordering Facility: [facility] Address: [address] [place] [address] Performed By: #### 2 4323-8, 81961-5 #### [facility] CLIA [id number] [address] [place] [address] [place] Platelet mean volume (Bld) [Entitic vol] 10.7 fL Normal 9.0-12.7 [facility] Comment on above: Order Comment: Speci men Type: BLOOD SPECIMEN Ordering Facility: [facility] Address: [address] [place] [address] Performed By: #### 2 4323-8, 37223-8 #### [facility] CLIA [id number] [address] [place] [address] [place] Platelets (Bld) [#/Vol] 192 10*3/uL Normal 150-400 [facility] Comment on above: Order Comment: Speci men Type: BLOOD SPECIMEN Ordering Facility: [facility] Address: [address] [place] [address] Performed By: #### 2 4323-8, 64869-4 #### [facility] CLIA [id number] [address] [place] [address] [place] RBC (Bld) [#/Vol] 4.81 10*6/uL Normal 3.90-5.20 [facility] Comment on above: Order Comment: Speci men Type: BLOOD SPECIMEN Ordering Facility: [facility] Address: [address] [address] Performed By: #### 2 4323-8, 10278-1 #### [facility] CLIA [id number] [address] [place] [address] [place] WBC (Bld) [#/Vol] 6.17 10*3/uL Normal 3.70-11.00 [facility] Comment on above: Order Comment: Speci men Type: BLOOD SPECIMEN Ordering Facility: [facility] Address: [address] [address] Performed By: #### 2 4323-8, 18633-5 #### [facility] CLIA [id number] [address] [place] [address] [place] Comprehensive metabolic 2000 panelon 07-26-2024 Albumin [Mass/Vol] 4.2 g/dL Normal 3.9-4.9 [facility] Comment on above: Order Comment: Speci men Type: BLOOD SPECIMEN Ordering Facility: [facility] Address: [address] [place] [address] Performed By: #### 2 4323-8, 72095-2 #### [facility] CLIA [id number] [address] [place] [address] [place] ALP [Catalytic activity/Vol] 76 U/L Normal 34-123 [facility] Comment on above: Order Comment: Speci men Type: BLOOD SPECIMEN Ordering Facility: [facility] Address: [address] [address] Performed By: #### 2 4323-8, 11372-8 #### [facility] CLIA [id number] [address] [place] [address] [place] ALT [Catalytic activity/Vol] 24 U/L Normal 7-38 [facility] Comment on above: Order Comment: Speci men Type: BLOOD SPECIMEN Ordering Facility: [facility] Address: [address] [address] Performed By: #### 2 4323-8, 52250-7 #### [facility] CLIA [id number] [address] [place] [address] [place] Anion gap [Moles/Vol] 10 mmol/L Normal 8-15 [facility] Comment on above: Order Comment: Speci men Type: BLOOD SPECIMEN Ordering Facility: [facility] Address: [address] [address] Performed By: #### 2 4323-8, 48278-9 #### [facility] CLIA [id number] [address] [place] [address] [place] AST [Catalytic activity/Vol] 21 U/L Normal 13-35 [facility] Comment on above: Order Comment: Speci men Type: BLOOD SPECIMEN Ordering Facility: [facility] Address: [address] [place] [address] Performed By: #### 2 4323-8, 09763-4 #### [facility] CLIA [id number] [address] [place] [address] [place] Bilirubin [Mass/Vol] 0.2 mg/dL Normal 0.2-1.3 [facility] Comment on above: Order Comment: Speci men Type: BLOOD SPECIMEN [facility] [facility] Address: [address] [place] [address] Performed By: #### 2 4323-8, 71953-5 #### [facility] CLIA [id number] [address] [place] [address] [place] Calcium [Mass/Vol] 8.9 mg/dL Normal 8.5-10.2 [facility] Comment on above: Order Comment: Speci men Type: BLOOD SPECIMEN Ordering Facility: [facility] Address: [address] [place] [address] Performed By: #### 2 4323-8, 25280-0 #### [facility] CLIA [id number] [address] [place] [address] [place] Chloride [Moles/Vol] 104 mmol/L Normal 98-107 [facility] Comment on above: Order Comment: Speci men Type: BLOOD SPECIMEN Ordering Facility: [facility] Address: [address] [place] [address] Performed By: #### 2 4323-8, 90105-0 #### [facility] CLIA [id number] [address] [place] [address] [place] CO2 [Moles/Vol] 25 mmol/L Normal 22-30 [facility] Comment on above: Order Comment: Speci men Type: BLOOD SPECIMEN Ordering Facility: [facility] Address: [address] [place] [address] Performed By: #### 2 4323-8, 58154-4 #### [facility] CLIA [id number] [address] [place] [address] [place] Creatinine [Mass/Vol] 0.85 mg/dL Normal 0.58-0.96 [facility] Comment on above: Order Comment: Shauna salazar Type: BLOOD SPECIMEN Ordering Facility: [facility] Address: [address] [place] [address] Performed By: #### 2 4323-8, 19976-0 #### [facility] CLIA [id number] [address] [place] [address] [place] Creatinine and Glomerular filtration rate.predicted panel (S/P/Bld) 81 mL/min/1.73m??? Normal >=60 [facility] Comment on above: Order Comment: Shauna salazar Type: BLOOD SPECIMEN Ordering Facility: [facility] Address: [address] [address] Result Comment: Christie mated Glomerular Filtration Rate (eGFR) is calculated using the 2020 CKD-EPI creatinine equation. This equation utilizes serum creatinine, sex, and age as parameters. The creatinine assay has traceable calibration to isotope dilution-mass spectrometry. Refer to KDIGO guidelines for clinical interpretation. In patients with unstable renal function, e.g. those with acute kidney injury, the eGFR may not accurately reflect actual GFR. Performed By: #### 2 4323-8, 80098-8 #### [facility] CLIA [id number] [address] [place] [address] [place] Glucose [Mass/Vol] 97 mg/dL Normal 74-99 [facility] Comment on above: Order Comment: Shauna salazar Type: BLOOD SPECIMEN Ordering Facility: [facility] Address: [address] [place] [address] Result Comment: The [place] Diabetes Association (ADA) provides guidance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 , filters, tubing, humidifier and lifetime supplies. cholecalciferol (VITAMIN D3) 50 mcg (2,000 unit) tablet Take 1 tablet by mouth once daily. REVIEW OF SYSTEMS SLEEP RELATED ROS GENERAL: See HPI RESPIRATORY: negative dyspnea CARDIOVASCULAR: negative chest pain MUSCULOSKELETAL: positive generalized body pain SKIN: negative mask irritation PSYCH: negative depression and suicidal thoughts ENDOCRINE: negative thyroid problems NEURO: negative memory problems All other systems reviewed and are negative. SOCIAL HISTORY Social History Tobacco Use Smoking status: Never Smokeless tobacco: Never Substance Use Topics Alcohol use: No Drug use: No FAMILY HISTORY FAMILY HI (more content not included)... Normal [facility] MOLLY BABB ([id number]) 1965 F Date Time Provider Department 07/10/23 DANIAL POLO [facility] During your visit today, we recorded the following information about you: Deneen Etienne RN 07/10/2023 9:40 AM Signed Patient reports she is having an issue with insurance regarding cpap. Asking if pcp charted in ov notes - she is using cpap nightly. Noted the 03-27-23 ov notes do state this. Patient will call [facility] and ask if these ov notes qualify for insurance. If the March ov notes qualify, patient will call back with fax number, to fax to [facility]. Bushra Murry LPN 07/10/2023 10:06 AM Signed Johan from [facility] stating he got copy of March ov notes but it didn't mention the C-pap. Reviewed notes and did advise that notes do show this. Johan is missing the first page that shows this. Advised him would refax notes to him. He verbalizes understanding. Ov notes have been faxed to [phone]. Bushra Murry WHOLESALE REPRESENTATIVE Allergies As of Date: 07/10/2023 (No Known Allergies) Date Reviewed: 03/27/2023 Reviewed by: Mis Godfrey - Fully Assessed Reason for Visit: Patient Question [5616] Prescriptions as of 07/10/2023 - venlafaxine ER (EFFEXOR XR) 150 mg 24 hr capsule Take 1 capsule by mouth once daily. - losartan (COZAAR) 50 mg tablet Take 1 tablet by mouth once daily. - CPAP Initiate Auto PAP @ 9-20 cm of water with humidification. Mask (per patient preference) optional chin strap (if indicated) , filters, tubing, humidifier and lifetime supplies. - cholecalciferol (VITAMIN D3) 50 mcg (2,000 unit) tablet Take 1 tablet by mouth once daily. 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] 11/15/2015 09/26/2021 Strain of left knee and leg [S86.912A] 11/15/2015 09/26/2021 History of breast cancer in female [Z85.3] 11/15/2015 Hyperlipidemia LDL goal <130 [E78.5] 10/11/2016 Fibromyalgia [M79.7] 10/03/2017 Heart murmur [R01.1] 03/22/2022 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 Her risk factor calculation is not that high. I would work on a low cholesterol diet. The 10-year ASCVD risk score (Leydi DK, et al., 2019) is: 4.2% Values used to calculate the score: Age: 57 years Sex: Female Is Non- : No Diabetic: No Tobacco smoker: No Systolic Blood Pressure: 136 mmHg Is BP treated: Yes HDL Cholesterol: 50 mg/dL Total Cholesterol: 252 mg/dL Misty Rollins LPN 04/03/2023 2:56 PM Signed Phoned pt, left detailed message on secure identified voicemail. Pt only to return call to office /c any questions or concerns. Misty Rollins LPN Allergies As of Date: 04/03/2023 (No Known Allergies) Date Reviewed: 03/27/2023 Reviewed by: Mis Godfrey - Fully Assessed Reason for Visit: Results [95] Prescriptions as of 04/03/2023 - venlafaxine ER (EFFEXOR XR) 150 mg 24 hr capsule Take 1 capsule by mouth once daily. - losartan (COZAAR) 50 mg tablet Take 1 tablet by mouth once daily. - CPAP Initiate Auto PAP @ 9-20 cm of water with humidification. Mask (per patient preference) optional chin strap (if indicated) , filters, tubing, humidifier and lifetime supplies. - cholecalciferol (VITAMIN D3) 50 mcg (2,000 unit) tablet Take 1 tablet by mouth once daily. Facility-Administered Medications as of 04/03/2023 - perflutren lipid microspheres 1.3 mL in NaCl (PF) 0.9% 10 mL injection (DEFINITY) - sodium chloride 0.9 % (flush) 10 mL (BD POSIFLUSH) Meds Comments as of 11/15/2015: Vitamin C - 3 capsules daily Problem List As Of Date 04/03/2023 Noted Resolved LUMP OR MASS IN BREAST [N63.0] 10/31/2007 04/01/2009 MALIG NEOPLASM BREAST UP-OUTER [C50.419] 11/05/2007 Enthesopathy of hip region [M76.899] 06/04/2008 09/26/2021 VITAMIN D DEFICIENCY NOS [E55.9] 12/08/2008 12/08/2008 Muscle pain [M79.10] 12/12/2009 09/26/2021 Median nerve entrapment [G56.00] 01/23/2011 09/26/2021 Vitamin D deficiency [E55.9] 04/21/2013 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] 11/15/2015 09/26/2021 Strain of left knee and leg [S86.912A] 11/15/2015 09/26/2021 History of breast cancer in female [Z85.3] 11/15/2015 Hyperlipidemia LDL goal <130 [E78.5] 10/11/2016 Fibromyalgia [M79.7] 10/03/2017 Heart murmur [R01.1] 03/22/2022 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] 09/24/2022 Pyelonephritis [N12] 10/23/2022 Tubular adenocarcinoma (HCC) [C80.1] 04/12/2022 Sleep apnea [G47.30] 11/30/2022 Primary hypertension [I10] 03/27/2023 Encounter Status:Closed by MISTY ROLLINS LPN on 04/03/23 [facility] ANES POSTPROC EVALon 022 ANES POSTPROC EVAL HNO ID: [id number] Author: Christian Castro APRN.WOOD GLUER Service: Anesthesiology Author Type: Nurse Advertiser Type: Anesthesia Postprocedure Evaluation Filed: 04/12/2022 9:26 AM Note Text: POST ANESTHESIA EVALUATION NOTE : 1965 Procedure Summary Date: 04/12/22 Room / Location: SURGERY Anesthesia Start: 834 Anesthesia Stop: 924 Procedure: COLONOSCOPY SCREENING Diagnosis: Screening for colon cancer Scheduled Providers: Jeanette Parsons MD; Christian Castro APRN.WOOD GLUER Responsible Provider: Christian Castro APRN.WOOD GLUER Anesthesia Type: MAC ASA Status: 2 Anesthesia Type: MAC Last Vitals Vitals Value Taken Time BP 04/12/22 0925 Temp 04/12/22 0925 Pulse 04/12/22 0925 Resp 04/12/22 0925 SpO2 04/12/22 0925 Post Anesthesia Patient Status Patient Evaluation: PACU. Anticipated Disposition: phase 2 then home. Neurological Status: aware and responsive. Pulmonary Status: breathing comfortably on room air Cardiovascular Status: stable. Pain Management: clinically adequate Postoperative Hydration: acceptable. Intraoperative Events: no significant anesthesia events Post Operative Nausea/Vomiting Status: no significant post operative nausea or vomiting Anesthetic Observations: Recommendation: continue current plan of care. Anesthesia Observations No Documentation SIGNATURE: Christian Castro APRN.WOOD GLUER PATIENT NAME: Molly Babb DATE: April 12, 2022 TIME: 9:25 AM CSN: [id number] [facility] ANES PRE-OPon 04-12-2022 ANES PRE-OP HNO ID: [id number] Author: Christian Castro APRN.WOOD GLUER Service: Anesthesiology Author Type: Nurse Advertiser Type: Anesthesia Preprocedure Evaluation Filed: 04/12/2022 8:09 AM Note Text: ANESTHESIOLOGY DAY OF SURGERY NOTE : 1965 Procedure Information Date/Time: 04/12/22 0900 Scheduled providers: Jeanette Parsons MD Procedure: COLONOSCOPY SCREENING Location: LD SURGERY Estimated body mass index is 33.47 kg/m? as calculated from the following: Height as of 03/28/22: 162.6 cm (5' 4 ). Weight as of 03/28/22: 88.5 kg (195 lb). Most recent hematocrit and potassium results: Hematocrit 45.4 03/23/2022 Potassium 4.1 03/23/2022 Relevant Problems CARDIO (+) Heart murmur NEURO-PSYCH (+) History of breast cancer in female I - PHYSICAL EVALUATION AIRWAY Patient intubated: No. Tracheostomy tube not present Mallampati: II. TM distance: >3 FB. Neck ROM: full ROM without neurological symptoms. Mouth opening: adequate. Short neck: no. Thick neck: no DENTAL Dental findings: teeth intact. Additional exam findings: no II - ANESTHESIA PLAN ASA Score: 2 Anesthetic Plan: MAC The patient is not a current smoker. NPO Status: adequate Beta Darell Administration of chronic beta darell medication not planned. Monitoring plan: standard ASA. Postoperative analgesic plan: per surgical service. Informed Consent Anesthetic risks, benefits, alternatives, personnel and consent discussed: yes. Patient / Responsible Democrat agrees to proceed: yes Patient / Surrogate agrees to blood products: blood products not planned DNR status reviewed with patient and/or family prior to surgery. patient elects to suspend DNR status in the perioperative setting (Full Code). Significant changes in the patient condition since the History and Physical, not otherwise documented in primary service progress note: no. Potential Anesthesia issues that may suggest increased risk of complications or contraindication to planned procedure: none. No vitals data found for the desired time range. Outpatient Medications as of 04/12/2022 Medication Sig - peg 3350-Electrolytes (GOLYTELY) 236-22.74-6.74 -5.86 gram suspension Refer to printed prep instructions from your provider. - venlafaxine ER (EFFEXOR XR) 150 mg 24 hr capsule Take 1 capsule by mouth once daily. - Cholecalciferol, Vitamin D3, (VITAMIN D-3) 2,000 unit Tab Take 1 tablet by mouth once daily. Facility-Administered Medications as of 04/12/2022 Medication Dose Route Frequency - perflutren lipid microspheres 1.3 mL in NaCl (PF) 0.9% 10 mL injection (DEFINITY) INTRAVENOUS DIRECTED PRN - sodium chloride 0.9 % (flush) 10 mL (BD POSIFLUSH) 10 mL INTRAVENOUS DIRECTED PRN I have interviewed and examined the patient. I have reviewed the medical record and/or the pre-anesthesia evaluation, pertinent labs, and test results. This contains updated information obtained within 48 hours of Surgery/Procedure. SIGNATURE: Christian Castro APRN.CRNA PATIENT NAME: Molly Babb DATE: April 12, 2022 TIME: 8:05 AM CSN: [id number] [facility] BRIEF OP NOTon 04-12-2022 BRIEF OP NOT HNO ID: [id number] Author: Jeanette Parsons MD Service: General Surgery Author Type: Physician Type: Brief Op Note Filed: 04/12/2022 9:21 AM Note Text: BRIEF OPERATIVE NOTE SURGERY DATE: 04/12/2022 Incision/Procedure Start Time: 8:39 cecal intubation time: 8:49 Incision Close/Procedure End Time: 9:18 Surgeon(s)/Procedural ist(s) and Court Administrator(s): tanisha Procedures: Colonoscopy with hot snare polypectomy Anesthesia: MAC Findings: transverse colon polyp - < 1 cm; proximal rectal polyp - 2 cm; hemorrhoids Estimated Blood Loss: minimal Specimens: transverse colon polyp, proximal rectal polyp Complications: None Preop Diagnosis: screening for colon cancer Postop Diagnosis: colon polyps, hemorrhoids SIGNATURE: Jeanette Parsons MD PATIENT NAME: Molly Babb DATE: April 12, 2022 TIME: 9:20 AM [facility] HISTORY PHYSICALon HISTORY PHYSICAL HNO ID: [id number] Author: Jeanette Parsons MD Service: General Surgery Author Type: Physician Type: HANDP Filed: 04/12/2022 7:56 AM Note Text: HISTORY AND PHYSICAL Molly Babb 1965 REFERRING PHYSICIAN: Danial Polo MD CHIEF COMPLAINT: Consult (Colonoscopy) HPI: The patient is a 56 year old female referred for endoscopy. She presents for consideration of screening for colon cancer via colonoscopy. She notes occasional bright blood per rectum on the toilet paper which she attributes to hemorrhoids. The patient denies blood in stools, denies abdominal pain, and denies changes in bowel habits. The patient notes no colon cancer in immediate family. The patient has not had previous colonoscopy. 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 Cholecalciferol, Vitamin D3, (VITAMIN D-3) 2,000 unit Tab Take 1 tablet by mouth once daily. peg 3350-Electrolytes (GOLYTELY) 236-22.74-6.74 -5.86 gram suspension Refer to printed prep instructions from your provider. ALLERGIES: Patient has no known allergies. PERSONAL HISTORY: Social History Tobacco Use Smoking status: Never Smoker Smokeless tobacco: Never Used Substance Use Topics Alcohol use: No Drug use: No FAMILY HISTORY Problem Relation Age of Onset Heart Father Heart Mother aortic calcifications other (PARKINSON'S DISEASE) Mother None Sister None Brother The review of systems data was entered by the nurse and reviewed by tn Nursing Notes: Karla Weinberg 03/28/2022 3:42 PM Signed REVIEW OF SYSTEMS: General: The patient denies fatigue, denies weight loss, denies weight gain, denies feeling hot, and denies feelings of cold. Eyes: The patient denies glaucoma, denies eye injury/surgery, wears glasses or contacts. Ear/Nose/Throat: The patient denies allergies, denies hayfever, denies ear infections, and denies bloody noses. Cardiovascular: The patient denies chest pain, denies heart disease, denies high blood pressure,denies cardiac stent, denies prior heart attack, denies irregular heart beat, denies high cholesterol, denies poor circulation, denies heart failure, other cardiac issues, denies claudication, denies cold feet, denies peripheral arterial stent. Respiratory: The patient denies tuberculosis, denies pneumonia, denies frequent cough, denies pulmonary embolism, denies shortness of breath, and denies coughing up blood. Gastrointestinal: The patient denies difficulty swallowing, denies acid reflux, denies ulcers, denies vomiting, denies jaundice/hepatitis, denies gallbladder problems, denies black or tarry stools, denies hemorrhoids, denies bleeding from rectum, denies diverticulitis, denies constipation, denies diarrhea, denies loss of stool control, and denies hernias. Kidney/Bladder: The patient NOTES kidney stones, denies urine infections, and denies bloody urine. Skin: The patient denies a history of skin cancer, denies bleeding/changing moles, and denies a history of skin rash. Neurologic: The patient denies a history of epilepsy/convulsions, denies headaches, denies head/spinal injuries, and denies stroke/TIA. Psychiatric: The patient denies psychiatric medications, denies depression, and denies voices, denies substance abuse. Endocrine: The patient denies thyroid disorders, denies diabetes, and denies hormonal problems. Hematologic: The patient denies a history of bruising, denies bleeding, and denies anemia, denies blood clots. Infections: The patient denies a history of measles and mumps, denies rheumatic fever, and denies sexually transmitted diseases. Musculoskeletal: The patient denies back pain/injury, denies back problems, denies sciatica, denies knee/foot trouble, denies arthritis, or denies gout. When was patient's last Mammogram screening? 06/06/2021 Last Colonoscopy: None Karla Weinberg PHYSICAL EXAMINATION: General: The patient is 56 year old female, well nourished, well hydrated in no acute distress. The patient is oriented to time, place, and person. VITALS: Blood pressure 136/81, pulse 87, temperature 36.5 ?C (97.7 ?F), height 162.6 cm (5' 4 ), weight 88.5 kg (195 lb), last menstrual period 07/29/2008, SpO2 96 %. Body mass index is 33.47 kg/m?. Head: Normal cephalic, atraumatic Eyes: pupils a (more content not included)... Normal [facility] OPERATIVE NOon 04-12-2022 OPERATIVE NO HNO ID: [id number] Author: Jeanette Parsons MD Service: General Surgery Author Type: Physician Type: Operative Report Filed: 04/13/2022 9:09 AM Note Text: [facility] - Operative Report - MOLLY Whelan : 1965 AGE: 56. SEX: F PATIENT TYPE: O HOSP SVC: LOCATION: ATTENDING PHYSICIAN: [facility] NUMBER: [id number] DATE OF SURGERY/PROCEDURE: 04/12/2022 INCISION/PROCEDURE START TIME: 8:39 AM INCISION CLOSE/PROCEDURE END TIME: 9:18 AM PREOPERATIVE DIAGNOSIS: Screening for colon cancer. POSTOPERATIVE DIAGNOSIS: Colon polyps and hemorrhoids. SURGEON: Jeanette Parsons MD METAL WEIGHER: No Additional Staff SURGERY/PROCEDURE: Colonoscopy with hot snare polypectomy. ANESTHESIA: MAC. LOCATION: [facility]. SPECIMENS: Transverse colon polyp and proximal rectal polyp. INDICATIONS: Molly Babb is a 56-year-old female, who presents with her first screening colonoscopy. She notes no colon cancer in her family. She has been counseled of the risks of procedure including, but not limited to infection, bleeding, perforation, GI tract requiring emergent surgery, inability to complete the procedure, injury to any internal organs such as liver or spleen, complications, anesthesia, etc. The patient understands and agrees to proceed. DESCRIPTION OF PROCEDURE: After informed consent was given, the patient brought to the endoscopy suite. Appropriate time-out protocol was done in preprocedure area as well as in the endoscopy suite. The patient was given IV anesthesia by the Anesthesia provider. The endoscope was lubricated, carefully inserted in the patient's anus and advanced into the rectum. It was then advanced into the sigmoid colon, then the left colon, past the splenic flexure into transverse colon, past hepatic flexure down the right colon into the cecum. The cecum was identified by transillumination, confluence of teniae coli, identification of ileocecal valve, appendiceal orifice, and external palpation. At this level, the colonoscope was slowly retracted back and entire colonic mucosal surface was examined. The colon cleansing preparation was adequate. There was no evidence of any masses, polyps, or lesions noted in the right colon. In the transverse colon, there appeared to be a less than 1 cm sized polyp which was completely removed using a hot snare device. There were no masses, polyps, or lesions noted in the left colon. There were no masses, polyps, or lesions noted in the sigmoid colon. In the proximal rectum, there was about 2 cm pedunculated polyp, which was removed completely using a hot snare device. Retroflex view in the rectum revealed hemorrhoidal changes, but no active inflammation or bleeding. The endoscope was removed intact. Digital examination of the anal canal revealed no palpable masses. The patient tolerated the procedure well, was brought to recovery room in stable condition. ESTIMATED BLOOD LOSS: Minimal. COMPLICATIONS: None. Jeanette Parsons MD [id number] /[id number] Normal [facility] SURGICAL PATHOLOGYon 022 CASE REPORT Normal [facility] Comment on above: Order Comment: Speci men Type: TISSUE SPECIMEN Ordering Facility: [facility] Address: [address] [place] [address] Result Comment: Surg [facility] Pathology Report Case: [id number] Authorizing Provider: Jeanette Parsons MD Collected: 04/12/2022 09:00 AM Ordering Location: SURGERY Received: 04/12/2022 11:22 AM Pathologist: Xochitl Rodríguez MD Specimens: A) - TRANSVERSE COLON POLYP B) - RECTAL POLYP Performed By: #### S #### [facility] [facility] CLIA [id number] [address] [place] [address] DIAGNOSIS COMMENT Normal [facility] Comment on above: Order Comment: Speci men Type: TISSUE SPECIMEN Ordering Facility: [facility] Address: [address] [place], [place] [id number] Result Comment: Deep er levels from parts A and B1 reviewed. Dr. Alisha Coley also reviewed the case and agrees with the diagnosis. Performed By: #### S #### [facility] CLIA [id number] [address] [place] [address] FINAL DIAGNOSIS Normal [facility] Comment on above: Order Comment: Speci men Type: TISSUE SPECIMEN Ordering Facility: [facility] Address: [address] [place] [address] Result Comment: A. C olon, transverse, biopsy: - Fragments of markedly cauterized colonic mucosa, not further characterizable. B. Colon, rectum, biopsy: - Fragments of tubulovillous adenoma. Performed By: #### S #### [facility] CLIA [id number] [address] [place] [address] FINAL PERFORMING LAB Normal [facility] Comment on above: Order Comment: Speci men Type: TISSUE SPECIMEN Ordering Facility: [facility] Address: [address] [place] [address] Result Comment: Diag nostic interpretation performed at [facility], [address] [place] [address] CLIA# [id number] It Consulting Manager: Sourav Allen M.D. Performed By: #### S #### [facility] CLIA [id number] [address] [place] [address] GROSS DESCRIPTION Normal [facility] Comment on above: Order Comment: Speci men Type: TISSUE SPECIMEN Ordering Facility: [facility] Address: [address] [place] [address] Result Comment: A. T RANSVERSE COLON POLYP Received in formalin labeled transverse colon polyp are multiple pieces of jeffries, soft tissue aggregating to 2.6 x 0.2 x 0.2 cm. Totally submitted in one cassette. B. RECTAL POLYP Received in formalin labeled rectal polyp are multiple pieces of jeffries-brown, soft and friable tissue aggregating to 2.5 x 2 x 0.7 cm. Totally submitted in 2 cassettes (B2 larger fragment bisected). Gross examination performed at [facility], [address] [place] [address] CLIA# [id number] RSA April 13, 2022 1:16 PM Performed By: #### S #### [facility] CLIA [id number] [address] [place] [address] NOVEL CORONAVIRUS NASOPHARYN GEAL - [facility] SPECIMEN ONLYon 05-25-2020 SARS-COV-2 NOT DETECTED Normal NOT DETECTED [facility] Comment on above: Order Comment: Viral transport media - Collection must be done while wearing N-95 mask, eye protection, gown and gloves. Please label ALL specimens as 2019-nCoV rule out and deliver by hand. This test was performed using real time PCR and has been approved for the qualitative detection of SARS-CoV-2 nucleic acid. The test has been authorized by the FDA under an emergency use authorization for use by authorized laboratories. Result Comment: Nega tive results do not preclude SARS-CoV-2 infection and should not be used as the sole basis for treatment or other patient management decisions. Optimum specimen types and timing for peak viral levels during infections caused by SARS-CoV-2 has not been determined. The possibility of a false negative result should especially be considered if the patient's recent exposures or clinical presentation suggest that SARS-CoV-2 infection is probable, and diagnostic tests for other causes of illness (e.g., other respiratory illness) are negative. Collection of a new specimen and re-testing may be necessary if the patient is critically ill or clinically deteriorating. Performed By: #### L [id number] #### [facility] (DEFAULT) [address] [place] [address] NOVEL CORONAVIRUS JENNIFERARYN GEAL - [facility] SPECIMEN ONLYon 05-18-2020 SARS-COV-2 NOT DETECTED Normal NOT DETECTED [facility] Comment on above: Order Comment: Viral transport media - Collection must be done while wearing N-95 mask, eye protection, gown and gloves. Please label ALL specimens as 2019-nCoV rule out and deliver by hand. This test was performed using real time PCR and has been approved for the qualitative detection of SARS-CoV-2 nucleic acid. The test has been authorized by the FDA under an emergency use authorization for use by authorized laboratories. Result Comment: Nega tive results do not preclude SARS-CoV-2 infection and should not be used as the sole basis for treatment or other patient management decisions. Optimum specimen types and timing for peak viral levels during infections caused by SARS-CoV-2 has not been determined. The possibility of a false negative result should especially be considered if the patient's recent exposures or clinical presentation suggest that SARS-CoV-2 infection is probable, and diagnostic tests for other causes of illness (e.g., other respiratory illness) are negative. Collection of a new specimen and re-testing may be necessary if the patient is critically ill or clinically deteriorating. Performed By: #### L [id number] #### [facility] ([facility]) [address] [place] [address] Vital Signs Date Time Vital Sign Value Performing Clinician Smita fink 03-23-2024 10:53-0400 Diastolic blood pressure 75 mm[Hg] Danial Polo MD Work Phone: [facility] 03-23-2024 10:53-0400 Systolic blood pressure 145 mm[Hg] Danial Polo MD Work Phone: [facility] 03-23-2024 10:29-0400 Heart rate 86 /min Danial Polo MD Work Phone: [facility] 03-23-2024 10:29-0400 SaO2% (BldA) [Mass fraction] 96 % Danial Polo MD Work Phone: [facility] 10-25-2023 09:01-0500 Diastolic blood pressure 72 mm[Hg] Sylvie Suppan DESILVERIZER.ACETYLENE TORCH OPERATOR Work Phone: [facility] 10-25-2023 09:01-0500 Systolic blood pressure 119 mm[Hg] Sylvie Suppan DESILVERIZER.ACETYLENE TORCH OPERATOR Work Phone: [facility] 10-25-2023 08:55-0500 Heart rate 69 /min Sylvie Suppan DESILVERIZER.ACETYLENE TORCH OPERATOR Work Phone: [facility] 10-25-2023 08:55-0500 Respiratory rate 16 /min Sylvie Suppan DESILVERIZER.ACETYLENE TORCH OPERATOR Work Phone: [facility] 10-25-2023 08:55-0500 SaO2% (BldA) [Mass fraction] 96 % Sylvie Suppan DESILVERIZER.ACETYLENE TORCH OPERATOR Work Phone: [facility] 07-29-2023 13:48-0500 Diastolic blood pressure 74 mm[Hg] Ana Laura Grace DESILVERIZER.C APPLICATION DEVELOPER Work Phone: [facility] 07-29-2023 13:48-0500 Heart rate 87 /min Ana Laura Beaverlin DESILVERIZER.C APPLICATION DEVELOPER Work Phone: [facility] 07-29-2023 13:48-0500 SaO2% (BldA) [Mass fraction] 97 % Ana Laura Grace DESILVERIZER.C APPLICATION DEVELOPER Work Phone: [facility] 07-29-2023 13:48-0500 Systolic blood pressure 156 mm[Hg] Ana Laura Beaverlin DESILVERIZER.C APPLICATION DEVELOPER Work Phone: [facility] 10-23-2022 10:06-0500 Body height 162.6 cm NA Knox PA-C Work Phone: [facility] 10-23-2022 10:06-0500 Body weight 90.72 kg NA Knox PA-C Work Phone: [facility] 10-23-2022 10:06-0500 Diastolic blood pressure 88 mm[Hg] NA Knox PA-C Work Phone: [facility] 10-23-2022 10:06-0500 Heart rate 72 /min NA Knox PA-C Work Phone: [facility] 10-23-2022 10:06-0500 Systolic blood pressure 144 mm[Hg] NA Knox PA-C Work Phone: [facility] 09-24-2022 10:33-0500 Body weight 90.72 kg Danial Polo MD Work Phone: [facility] 09-24-2022 10:33-0500 Diastolic blood pressure 82 mm[Hg] Danial Polo MD Work Phone: [facility] 09-24-2022 10:33-0500 Heart rate 80 /min Danial Polo MD Work Phone: [facility] 09-24-2022 10:33-0500 SaO2% (BldA) [Mass fraction] 96 % Danial Polo MD Work Phone: [facility] 09-24-2022 10:33-0500 Systolic blood pressure 162 mm[Hg] Danial Polo MD Work Phone: [facility] 04-12-2022 10:10-0400 Diastolic blood pressure 87 mm[Hg] Jeanette Parsons MD Work Phone: [facility] 04-12-2022 10:10-0400 Heart rate 69 /min Jeanette Parsons MD Work Phone: [facility] 04-12-2022 10:10-0400 Respiratory rate 21 /min Jeanette Parsons MD Work Phone: [facility] 04-12-2022 10:10-0400 SaO2% (BldA) [Mass fraction] 97 % Jeanette Parsons MD Work Phone: [facility] 04-12-2022 10:10-0400 Systolic blood pressure 156 mm[Hg] Jeanette Parsons MD Work Phone: [facility] 04-12-2022 09:24-0400 Body temperature 97 [degF] Jeanette Parsons MD Work Phone: [facility] 04-12-2022 08:20-0400 Body height 162.6 cm Jeanette Parsons MD Work Phone: [facility] 04-12-2022 08:20-0400 Body weight 88.45 kg Jeanette Parsons MD Work Phone: [facility] 03-28-2022 15:38-0400 Body height 162.6 cm Jeanette Parsons MD Work Phone: [facility] 03-28-2022 15:38-0400 Body temperature 97.7 [degF] Jeanette Parsons MD Work Phone: [facility] 03-28-2022 15:38-0400 Body weight 88.45 kg Jeanette Parsons MD Work Phone: [facility] 03-28-2022 15:38-0400 Diastolic blood pressure 81 mm[Hg] Jeanette Parsons MD Work Phone: [facility] 07-27-2022 15:38-0400 Heart rate 87 /min Jeanette Parsons MD Work Phone: [facility] 03-28-2022 15:38-0400 SaO2% (BldA) [Mass fraction] 96 % Jeanette Parsons MD Work Phone: [facility] 03-28-2022 15:38-0400 Systolic blood pressure 136 mm[Hg] Jeanette Parsons MD Work Phone: [facility] 03-22-2022 15:31-0400 Body weight 87.54 kg Danial Polo MD Work Phone: [facility] 03-22-2022 15:31-0400 Diastolic blood pressure 92 mm[Hg] Danial Ploo MD Work Phone: [facility] 03-22-2022 15:31-0400 Heart rate 72 /min Danial Polo MD Work Phone: [facility] 03-22-2022 15:31-0400 Systolic blood pressure 144 mm[Hg] Danial Polo MD Work Phone: [facility] Encounters Encounter Date Encounter Type Care Provider Facility Start: 03-30-2024 Telephone encounter Danial Polo MD Work Phone: [facility] Comment on above: Results Start: 03-27-2024 End: 03-27-2024 ambulatory DANIAL POLO Facility:[facility] Start: 03-23-2024 End: 03-23-2024 Patient encounter procedure Danial Polo MD Work Phone: [facility] Comment on above: Primary hypertension (Primary Dx); Hyperlipidemia LDL goal <130; Fibromyalgia; Heart murmur; Sleep apnea, unspecified type; History of breast cancer in female; Tubulovillous adenoma; Vitamin D deficiency Start: 03-23-2024 End: 03-23-2024 ambulatory DANIAL POLO Facility:[facility] Start: 10-25-2023 End: 10-25-2023 [facility] Facility:[facility] Start: 10-25-2023 End: 10-25-2023 Office outpatient visit 15 minutes Sylvie Decker DESILVERIZER.ACETYLENE TORCH OPERATOR Work Phone: [facility] Comment on above: Fibromyalgia Start: 09-27-2023 End: 09-27-2023 ambulatory DANIAL POLO Facility:[facility] Start: 07-29-2023 End: 07-29-2023 ambulatory DANIAL Viviana PHILIP Facility:[facility] Start: 07-29-2023 End: 07-29-2023 Patient encounter procedure Ana Laura Mckinleyaughlin DESILVERIZER.C APPLICATION DEVELOPER Work Phone: Neurology Comment on above: Obstructive sleep ap eric (Primary Dx) Start: 07-10-2023 Telephone encounter Danial Polo MD Work Phone: [facility] Comment on above: Patient Question Start: 04-03-2023 Telephone encounter Danial Polo MD Work Phone: [facility] Comment on above: Results Start: 01-08-2023 ambulatory Ana Laura Mckinleyjamal soto DESILVERIZER.C APPLICATION DEVELOPER Work Phone: Neurology Comment on above: Reschedule/Cancellat ion Ana Laura Ana M Start: 01-08-2023 E-mail encounter fro m caregiver Ana Laura Mckinleyaughlin DESILVERIZER.C APPLICATION DEVELOPER Work Phone: [facility] Start: 12-05-2022 Telephone encounter Danial Polo MD Work Phone: [facility] [place] Comment on above: Results Start: 12-03-2022 ambulatory Deneen ROBLEDOC Work Phone: [facility] Comment on above: blood pressure Start: 12-03-2022 E-mail encounter fro m caregiver Deneen Knox PA-C Work Phone: [facility] Start: 11-30-2022 End: 12-01-2022 ambulatory DANIAL POLO Facility:[facility] Start: 11-21-2022 Chart abstracting [facility] Work Phone: Neurology Start: 10-23-2022 End: 10-23-2022 Patient encounter procedure Deneen ROBLEDOC Work Phone: [facility] Comment on above: Primary hypertension (Primary Dx) Start: 10-10-2022 ambulatory Danial Polo MD Work Phone: [facility] Comment on above: Authorization Start: 09-24-2022 End: 09-24-2022 Patient encounter procedure Danial Polo MD Work Phone: [facility] Comment on above: Fibromyalgia (Primar y Dx); Hyperlipidemia LDL goal <130; History of breast cancer in female; Vitamin D deficiency; LORI (obstructive sleep apnea); Primary hypertension; Tubulovillous adenoma Start: 08-20-2022 Refill Danial Polo MD Work Phone: [facility] Comment on above: Refill Request Start: 07-25-2022 Refill Danial Polo MD Work Phone: [facility] [place] Comment on above: Refill Request Start: 05-25-2022 ambulatory Danial Polo MD Work Phone: [facility] [place] Comment on above: Mammogram Start: 04-28-2022 Refill Danial Polo MD Work Phone: [facility] [place] Comment on above: Refill Request Start: 04-20-2022 End: 04-20-2022 ambulatory Francy Hoffman PA-C Work Phone: General Surgery Comment on above: Tubulovillous adenom a (Primary Dx); History of colonic polyps Start: 04-20-2022 End: 04-20-2022 Telemedicine consultation with patient Francy Hoffman PA-C Work Phone: [facility] Start: 04-12-2022 End: 04-12-2022 Subsequent hospital visit by physician Jeanette Parsons MD Work Phone: [facility] Comment on above: Screening for colon cancer [Z12.11] Start: 03-28-2022 End: 03-28-2022 Patient encounter procedure Jeanette Parsons MD Work Phone: General Surgery Comment on above: Screening for colon cancer Start: 03-26-2022 Telephone encounter Danial Polo MD Work Phone: [facility] Comment on above: Results Start: 03-22-2022 End: 03-22-2022 Patient encounter procedure Danial Polo MD Work Phone: [facility] Comment on above: Fibromyalgia (Primar y Dx); Screening for colon cancer; Hyperlipidemia LDL goal <130; History of breast cancer in female; Vitamin D deficiency; Screening for HIV (human immunodeficiency virus); Need for hepatitis C screening test; Functional murmur Procedures Date Procedure Procedure Detail Performing Clinician Start: 03-27-2024 Lipid 1996 panel - S jaun or Plasma Danial Polo MD Work Phone: Start: 04-02-2023 Lipid 1996 panel - S jaun or Plasma Danial Polo MD Work Phone: Start: 04-12-2022 Colonoscopy Francy espino PA-C Work Phone: Start: 03-20-2022 Adult depression scr eening assessment Danial Polo MD Work Phone: Start: 06-22-2021 Mammography Danial Valdez MD Work Phone: Plan of Treatment Date Care Activity Detail Author Start: 03-27-2029 Lipid panel Lipid Screening [facility] Start: 08-05-2028 Screening for malignant neoplasm of cervix [facility] Start: 04-02-2028 Lipid 1996 panel - Serum or Plasma Lipid Screening [facility] Start: 04-02-2028 Lipid panel Lipid Screening [facility] Start: 04-02-2028 LIPID SCREEN LIPID SCREEN [facility] Start: 03-27-2027 Diabetes Screening Diabetes Screening [facility] Start: 03-23-2027 LIPID SCREEN LIPID SCREEN [facility] Start: 04-02-2026 DIABETES SCREEN DIABETES SCREEN [facility] Start: 04-02-2026 Diabetes Screening Diabetes Screening [facility] Start: 07-25-2025 LIPID SCREEN LIPID SCREEN [facility] Start: 04-12-2025 Colonoscopy COLONOSCOPY [facility] Start: 04-12-2025 COLORECTAL CANCER SCREENING COLORECTAL CANCER SCREENING [facility] Start: 04-12-2025 Screening for malignant neoplasm of colon [facility] Start: 03-23-2025 Annual PCP Team Chronic Disease Visit Annual PCP Team Chronic Disease Visit [facility] Start: 03-23-2025 DIABETES SCREEN DIABETES SCREEN [facility] Start: 10-25-2024 BP Controlled (<130/80) BP Controlled (<130/80) [facility] Start: 10-25-2024 Covid-19 Vaccine (#1) Covid-19 Vaccine (#1) [facility] Comment on above: Postponed from 06/25/1966 (Declined at t his time) Start: 10-25-2024 Covid-19 Vaccine () Covid-19 Vaccine () [facility] Comment on above: Postponed from 05/03/2023 (Declined at t his time) Start: 09-27-2024 Annual PCP Team Chronic Disease Visit Annual PCP Team Chronic Disease Visit [facility] Start: 09-01-2024 Behavioral Health Screening Behavioral Health Screening [facility] Comment on above: Postponed from 09/02/2023 (Declined at t his time) Start: 06-13-2024 Mammography Mammogram Screening [facility] Start: 06-13-2024 Screening for malignant neoplasm of breast Mammogram Screening [facility] Start: 05-03-2024 Influenza vaccination [facility] Start: 04-21-2024 End: 04-21-2024 Patient encounter procedure [facility] Comment on above: 4 week follow up 4 week follow up (BP check, increased losartan) Start: 03-30-2024 End: 06-29-2024 25-hydroxyvitamin D3 [Mass/volume] in Serum or Plasma VITAMIN D 25 HYDROXY Lab Routine Vitamin D deficiency Expected: 03/30/2024, Expires: 06/29/2024 [facility] Work Phone: Comment on above: Expected: 03/30/2024, Expires: Start: 03-27-2024 ANNUAL PCP TEAM CHRONIC DISEASE VISIT ANNUAL PCP TEAM CHRONIC DISEASE VISIT [facility] Start: 03-27-2024 SHINGRIX VACCINE (1 of 2) SHINGRIX VACCINE (1 of 2) [facility] Comment on above: Postponed from 12/24/2017 (Declined at t his time) Start: 03-27-2024 Urine microalbumin profile [facility] Comment on above: Postponed from 04/21/2023 (Declined at t his time) Start: 03-23-2024 End: 06-22-2024 25-hydroxyvitamin D3 [Mass/volume] in Serum or Plasma VITAMIN D 25 HYDROXY Lab Routine Vitamin D deficiency Expected: 03/23/2024, Expires: 06/22/2024 [facility] Comment on above: Expected: 03/23/2024, Expires: Start: 03-23-2024 End: 06-22-2024 CBC W Auto Differential panel - Blood COMPLETE BLOOD COUNT AND DIFFERENTIAL Lab Routine Primary hypertension Expected: 03/23/2024, Expires: 06/22/2024 [facility] Work Phone: Comment on above: Expected: 03/23/2024, Expires: Start: 03-23-2024 End: 06-22-2024 Comprehensive metabolic 2000 panel - Serum or Plasma COMPREHENSIVE METABOLIC PANEL Lab Routine Primary hypertension Expected: 03/23/2024, Expires: 06/22/2024 [facility] Comment on above: Expected: 03/23/2024, Expires: Start: 03-23-2024 End: 06-22-2024 Lipid 1996 panel - Serum or Plasma LIPID PANEL BASIC Lab Routine Primary hypertension Expected: 03/23/2024, Expires: 06/22/2024 [facility] Comment on above: Expected: 03/23/2024, Expires: Start: 03-01-2024 Influenza vaccination Influ[facility] Vaccine [facility]) [facility] Comment on above: Postponed from 05/03/2023 (Declined at t his time) Start: 10-23-2023 ANNUAL PCP TEAM CHRONIC DISEASE VISIT ANNUAL PCP TEAM CHRONIC DISEASE VISIT [facility] Start: 10-23-2023 COVID-19 VACCINE (#1) COVID-19 VACCINE (#1) [facility] Comment on above: Postponed from [birth year]/25/1968 (Declined at t his time) Start: 07-25-2023 DIABETES SCREEN DIABETES SCREEN [facility] Start: 05-03-2023 Influenza vaccination [facility] Start: 04-21-2023 Urine microalbumin profile [facility] Start: 03-24-2023 End: 05-24-2023 25-hydroxyvitamin D3 [Mass/volume] in Serum or Plasma VITAMIN D 25 HYDROXY Lab Routine Vitamin D deficiency Primary hypertension Expected: 03/24/2023, Expires: 05/24/2023 [facility] Work Phone: Comment on above: Expected: 03/24/2023, Expires: 3 Start: 03-24-2023 End: 05-24-2023 CBC W Auto Differential panel - Blood CBC + DIFF Lab Routine Fibromyalgia Primary hypertension Expected: 03/24/2023, Expires: 05/24/2023 [facility] Work Phone: Comment on above: Expected: 03/24/2023, Expires: 3 Start: 03-24-2023 End: 05-24-2023 Comprehensive metabolic 2000 panel - Serum or Plasma COMP METABOLIC PANEL Lab Routine Fibromyalgia Expected: 03/24/2023, Expires: 05/24/2023 [facility] Work Phone: Comment on above: Expected: 03/24/2023, Expires: 3 Start: 03-24-2023 End: 05-24-2023 Lipid 1996 panel - Serum or Plasma LIPID PANEL BASIC Lab Routine Primary hypertension Expected: 03/24/2023, Expires: 05/24/2023 [facility] Work Phone: Comment on above: Expected: 03/24/2023, Expires: 3 Start: 03-20-2023 Adult depression screening assessment DEPRESSION SCREENING [facility] Start: 03-01-2023 Influenza vaccination INFLUENZA (#1) [facility] Comment on above: Postponed from 05/03/2022 (Declined at t his time) Start: 09-26-2022 COVID-19 VACCINE (#1) COVID-19 VACCINE (#1) [facility] Comment on above: Postponed from [birth year]/1968 (Declined at t his time) Start: 09-26-2022 SHINGRIX VACCINE (1 of 2) SHINGRIX VACCINE (1 of 2) [facility] Comment on above: Postponed from 12/24/2017 (Declined at t his time) Start: 06-22-2022 Mammography MAMMOGRAM [facility] Start: 06-17-2022 HPV TESTING HPV TESTING [facility] Start: 06-17-2022 PAP TESTING PAP TESTING [facility] Start: 05-03-2022 Influenza vaccination INFLUENZA (#1) [facility] Start: 03-22-2022 End: 05-22-2022 25-hydroxyvitamin D3 [Mass/volume] in Serum or Plasma VITAMIN D 25 HYDROXY Lab Routine Vitamin D deficiency Expected: 03/22/2022, Expires: 05/22/2022 [facility] [employer] Work Phone: Comment on above: Expected: 03/22/2022, Expires: 2 Start: 03-22-2022 End: 03-22-2023 CBC W Auto Differential panel - Blood CBC + DIFF Lab Routine Fibromyalgia History of breast cancer in female Expected: 03/22/2022, Expires: 03/22/2023 [facility] Work Phone: Comment on above: Expected: 03/22/2022, Expires: 3 Start: 03-22-2022 End: 03-22-2023 Comprehensive metabolic 2000 panel - Serum or Plasma COMP METABOLIC PANEL Lab Routine Hyperlipidemia LDL goal <130 Fibromyalgia History of breast cancer in female Expected: 03/22/2022, Expires: 03/22/2023 [facility] Work Phone: Comment on above: Expected: 03/22/2022, Expires: 3 Start: 03-22-2022 End: 05-22-2022 Hepatitis C virus Ab [Presence] in Serum HEP C AB IA W/CONF SCRN Lab Routine Need for hepatitis C screening test Expected: 03/22/2022, Expires: 05/22/2022 [facility] Work Phone: Comment on above: Expected: 03/22/2022, Expires: 2 Start: 03-22-2022 End: 05-22-2022 HIV RAPID SCREEN HIV RAPID SCREEN Lab Routine Screening for HIV (human immunodeficiency virus) Expected: 03/22/2022, Expires: 05/22/2022 [facility] Work Phone: Comment on above: Expected: 03/22/2022, Expires: 2 Start: 03-22-2022 End: 03-22-2023 Lipid 1996 panel - Serum or Plasma LIPID PANEL BASIC Lab Routine Hyperlipidemia LDL goal <130 Expected: 03/22/2022, Expires: 03/22/2023 [facility] Work Phone: Comment on above: Expected: 03/22/2022, Expires: 3 Start: 09-02-2021 DEPRESSION ASSESSMENT DEPRESSION ASSESSMENT [facility] Start: 12-24-2017 SHINGRIX VACCINE (1 of 2) SHINGRIX VACCINE (1 of 2) [facility] Start: 12-24-2012 COLOGUARD (FIT-DNA) COLOGUARD (FIT-DNA) [facility] Start: 12-24-2012 Colonoscopy COLONOSCOPY [facility] Start: 12-24-2012 COLORECTAL CANCER SCREENING COLORECTAL CANCER SCREENING [facility] Start: 12-24-[address] COLONOGRAPHY [facility] Start: 12-24-2012 FECAL OCCULT BLOOD FECAL OCCULT BLOOD [facility] Start: 12-24-2012 Screening for malignant neoplasm of colon [facility] Start: 12-24-2012 SIGMOIDOSCOPY SIGMOIDOSCOPY [facility] Start: 12-24-1985 Anxiety Screening Anxiety Screening [facility] Start: 12-24-1985 BP CONTROLLED (<130/80) BP CONTROLLED (<130/80) [facility] Start: 12-24-1985 Depression Screening Depression Screening [facility] Start: 12-24-1985 HEPATITIS C SCREENING HEPATITIS C SCREENING [facility] Start: 12-24-1985 HIV SCREENING HIV SCREENING [facility] Start: [birth year]-25-1968 COVID-19 VACCINE (#1) COVID-19 VACCINE (#1) [facility] Start: 1967 HEPATITIS B (1 of 3 - 3-dose series) HEPATITIS B (1 of 3 - 3-dose series) [facility] End: 03-22-2023 Echocardiography ECHO Cardiology Routine Functional murmur 1 Occurrences starting 03/22/2022 until 03/22/2023 [facility] Work Phone: Comment on above: 1 Occurrences starting 03/22/2022 until 03/22/2023 End: 09-24-2023 HOME SLEEP APNEA TEST (HSAT) HOME SLEEP APNEA TEST (HSAT) Procedures Routine LORI (obstructive sleep apnea) 1 Occurrences starting 09/24/2022 until 09/24/2023 [facility] Work Phone: Comment on above: 1 Occurrences starting 09/24/2022 until 09/24/2023 End: 03-28-2023 Screening colonoscopy COLONOSCOPY SCREENING Endoscopy Routine Screening for colon cancer 1 Occurrences starting 03/28/2022 until 03/28/2023 [facility] Work Phone: Comment on above: 1 Occurrences starting 03/28/2022 until 03/28/2023 End: 04-12-2022 Screening colonoscopy COLONOSCOPY SCREENING Endoscopy Routine Screening for colon cancer 1 Occurrences starting 04/12/2022 until 04/12/2022 [facility] Work Phone: Comment on above: 1 Occurrences starting 04/12/2022 until 04/12/2022 End: 06-24-2023 Screening mammography bi 2-view breast inc cad BRAXTON SCREENING Radiology Routine Screening breast examination 1 Occurrences starting 05/25/2022 until 06/24/2023 [facility] Work Phone: Comment on above: 1 Occurrences starting 05/25/2022 until 06/24/2023 SURGICAL PATHOLOGY [facility] Work Phone: Comment on above: Release Upon Ordering for 1 Occurrences starting 04/12/[address] [facility] Immunizations Immunization Date Immunization Notes Care Provider [facility] 07-29-2020 influenza virus vaccine, unspecified formulation Danial Polo MD Work Phone: [facility] 04-21-2013 tetanus toxoid, redu ludwin diphtheria toxoid, and acellular pertussis vaccine, adsorbed Danial Polo MD Work Phone: [facility] Work Phone: Payers Date Payer Category Payer Unknown [employer] PPO [id number] 2021-Present [phone] [address] [place] [address] PPO [id number] 2021 Unknown [employer]ASSIDY CHAN PPO [id number] 2021-Present [phone] [address] [place] [address] PPO [id number] 2021 Unknown [id number] Social History Date Type Detail [facility] Start: 03-22-2022 End: 03-23-2024 Alcohol intake Current non-drinker of alcohol (finding) [facility] Start: 09-24-2021 End: 09-19-2022 History SDOH Alcohol Frequency 3 [facility] Start: 07-29-2020 End: 09-24-2021 History SDOH Alcohol Std Drinks 1 [facility] Start: 09-24-2021 End: 09-19-2022 History SDOH Social Connections Phone 5 [facility] Start: 09-24-2021 End: 09-19-2022 History SDOH Social Connections Get Together 2 [facility] Start: 09-24-2021 History SDOH Physica l Activity DPW 4 [facility] Start: 07-29-2020 Education 17 [facility] Start: 1965 Sex Assigned At Female [facility] Start: 03-12-2022 End: 04-12-2022 Exposure to SARS-CoV-2 (event) Not sure [facility] Start: 09-19-2022 History SDOH Social Connections Meetings 98 [facility] Start: 09-19-2022 End: 03-27-2023 History of Social function [facility] Start: 09-19-2022 End: 03-27-2023 Social connection and isolation panel [facility] Do you belong to any clubs or organizations such as adventism groups, unions, fraternal or athletic groups, or school groups? No [facility] How often do you att end meetings of the clubs or organizations you belong to? Patient refused [facility] Are you now , , , , never or living with a partner? [facility] How often to you hav e a drink containing alcohol? Monthly or less [facility] How many standard dr inks containing alcohol do you have on a typical day? 1 or 2 [facility] How often do you hav e 6 or more drinks on 1 occasion? Never [facility] Do you feel stress - tense, restless, nervous, or anxious, or unable to sleep at night because your mind is troubled all the time - these days [OSQ] Only a little [facility] (I/We) worried wheth er (my/our) food would run out before (I/we) got money to buy more. Never true [facility] Start: 04-27-2020 Gender identity Identifies as female gender (finding) [facility] Start: 04-27-2020 Sexual orientation Heterosexual (fin ding) [facility] Do you belong to any clubs or organizations such as adventism groups, unions, fraternal or athletic groups, or school groups? Yes [facility] Do you feel stress - tense, restless, nervous, or anxious, or unable to sleep at night because your mind is troubled all the time - these days [OSQ] Not at all [facility] Clinical Notes 11-15-2015 to 03-31-2024 Telephone Encounter - Odette Reno MA - 03/31/2024 9:54 AM EDTTelephone Encounter - Odette Reno MA - 03/31/2024 9:54 AM EDTTelephone Encounter - Sakina Rubin MA - 03/30/2024 11:49 AM EDT Note Date & Type Note Facility 03-31-2024 Telephone encounter Note Pt notified and voiced understanding. Odette Reno MA [facility] 03-31-2024 Miscellaneous Notes Pt notified and voiced understanding. Odette Reno MA Called and left message on patients voicemail to return call to the office and ask to speak with a triage nurse. Please relay information below. Sakina Rubin MA Recheck level in two weeks. Vitamin D 5000 units twice a week. Has been taking since dx with breast cancer. Patient states that she will cut back to once weekly. Advised that will contact her back with additional instructions. Cholesterol is improving. Vit d is high. Is she taking any vitamins or supplements with vit d in them? documented in this encounter [facility] 03-30-2024 Telephone encounter Note Called and left message on patients voicemail to return call to the office and ask to speak with a triage nurse. Please relay information below. Sakina Rubin MA [facility] 03-30-2024 Telephone encounter Note Recheck level in two weeks. [facility] 03-30-2024 Telephone encounter Note Vitamin D 5000 units twice a week. Has been taking since dx with breast cancer. Patient states that she will cut back to once weekly. Advised that will contact her back with additional instructions. [facility] 03-30-2024 Telephone encounter Note Cholesterol is improving. Vit d is high. Is she taking any vitamins or supplements with vit d in them? [facility] 03-23-2024 Note HNO ID: [id number] Author: DANIAL POLO MD Service: ? Author Type: Physician Type: Progress Notes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 out. HRRR without murmur or gallop. No lifts, heaves, or rubs. Extrem: no clubbing or cyanosis. Edema: none. Extremities are warm and pink with prompt capillary refill. ASSESSMENT/PLAN: 1. Primary hypertension - ICD9: 401.9, ICD10: I10 - suboptimal control - Increase losartan(Cozaar) - Recommended regular aerobic exercise. - Recommend home blood pressure monitoring, to bring results in on next visit - Goal of BP <130/80 Will need BP recheck in 4 weeks, states will be check at sleep study. Agrees to contact me after study Deneen Knox PA-C documented in this encounterUniversity [facility] History of Present illness Narrative* Danial Polo MD - 09/24/2022 10:35 AM EST Patient presents with: 6 Month Exam HPI: Patient presents today for office visit for follow up. PSYCH: Currently tolerating medications well: yes .using more for her fibro. Side effects: No. Sleep issues: see note regarding possible apnea. Energy changes: No. Appetite changes: No. Current depression: No. Current anxiety: No. Suicidal ideation: No. Snoring: Snoring has increased. reports at times apnea. Most days does not wake up feeling rested. No trouble falling asleep or staying asleep noted. Sleep study years ago that was negative. Is fatigued on wakening. Can occasionally get sleepy in the afternoon. Does have a pause when sleeping periodically. 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 Just had in June. MEDICATIONS: Current Outpatient Medications Medication Sig venlafaxine ER (EFFEXOR XR) 150 mg 24 hr capsule Take 1 capsule by mouth once daily. cholecalciferol (VITAMIN D3) 50 mcg (2,000 unit) tablet Take 1 tablet by mouth once daily. 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 Fibromyalgia Hyperlipidemia LDL goal <130 10/11/2016 Malignant neoplasm of breast (female), unspecified site 11/07 left, chemo and radiation PMH - PAST MEDICAL HISTORY OF CYCLING CONTROL PAST SURGICAL HISTORY Procedure Laterality Date ARTHROSCOPY OF JOINT UNLISTED X 2- right knee DELIVERY ONLY COLONOSCOPY SCREENING 04/12/2022 polyps repeat in 3 yrs LAPAROSCOPY W/RMVL ADNEXAL STRUCTURES 05/10/2009 Laprascpic BSO MASTECTOMY, PARTIAL 11/18/2007 Left upper outer PAST SURGICAL HISTORY OF HYMENECTOMY FAMILY HISTORY Problem Relation Age of Onset Heart Father Heart Mother aortic calcifications other (PARKINSON'S DISEASE) Mother None Sister None Brother Social History Tobacco Use Smoking status: Never Smokeless tobacco: Never Substance Use Topics Alcohol use: No Drug use: No Reviewed current medications, allergies, past medical history, surgical history, family history andsocial history today. REVIEW OF SYSTEMS All other reviewed and negative other than HPI. HEALTH MAINTENANCE: Reviewed health maintenance issues today and recommended the following in detail. HEPATITIS B(1 of 3 - 3-dose series) - done. INFLUENZA(- declines DEPRESSION ASSESSMENT Never done VITALS: BP 162/82 Pulse 80 Wt 90.7 kg (200 lb) LMP 07/29/2008 SpO2 96% BMI 34.33 kg/m Last 4 Encounter Wt Readings: Date: Wt: 09/24/2022 90.7 kg (200 lb) 04/12/2022 88.5 kg (195 lb) 03/28/2022 88.5 kg (195 lb) 03/22/2022 87.5 kg (193 lb) PHYSICAL EXAMINATION: General appearance: Well appearing, alert, in no acute distress, well-hydrated, well nourished. Skin: Skin color, texture, turgor normal, no suspicious rashes or lesions Head: Normocephalic, no masses, lesions, tenderness or abnormalities Eyes: Anicteric sclera. Pupils are equally round and reactive to light. Extraocular movements are intact. Lungs: Lungs clear to auscultation. No wheezing, rhonchi, rales Heart: RRR no, gallop, or rubs. No ectopy Abdomen: Normal abdominal exam, Abdomen soft, non-tender. Bowel sounds normal. No masses, organomegaly Extremities: No deformities, edema, skin discoloration, clubbing or cyanosis. Good capillary refill. Musculoskeletal: No joint swelling, deformity, or tenderness Peripheral pulses: Normal Neuro: Negative. ASSESSMENT/PLAN: 1. Fibromyalgia - ICD9: 729.1, ICD10: M79.7 (primary diagnosis) - continue meds. - CBC + DIFF - COMP METABOLIC PANEL 2. Hyperlipidemia LDL goal <130 - ICD9: 272.4, ICD10: E78.5 - LIPID PANEL BASIC 3. History of breast cancer in female - ICD9: V10.3, ICD10: Z85.3 - get annual mammo 4. Vitamin D deficiency - ICD9: 268.9, ICD10: E55.9 - VITAMIN D 25 HYDROXY 5. LORI (obstructive sleep apnea) - ICD9: 327.23, ICD10: G47.33 - HOME SLEEP APNEA TEST (HSAT) 6. Primary hypertension - ICD9: 401.9, ICD10: I10 - Discussed risks and benefits of new medication with the patient. Advised them to call if any sideeffects or questions. - - LOSARTAN 25 MG TABLET - VITAMIN D 25 HYDROXY - CBC + DIFF - LIPID PANEL BASIC - colonoscopy in three years. Danial Polo MD documented in this encounterUniversity [facility]als [facility]12-20-2022 Miscellaneous Notes* Telephone Encounter - Karyna Cardona Ma - 08/21/2022 9:24 AM EST Last filled 07/25/22 documented in this encounterUniversity Hospitals [facility]11-23-2022 Miscellaneous Notes* Telephone Encounter - Odette Reno Ma - 07/25/2022 7:58 AM EST Last office visit: 03/22/22 F/u scheduled: 09/24/22 Odette Reno Ma documented in this encounterUniversity Hospitals [facility]09-23-2022 Miscellaneous Notes* Telephone Encounter - Sakina Rubin Ma - 05/25/2022 12:48 PM EDT Order has been faxed within [facility] to [facility]. Pt notified via [employer], to update office if there are anyissues. Sakina Rubin Ma * Telephone Encounter - Danial Polo MD - 05/25/2022 12:46 PM EDT Ordered. documented in this encounterUniversity Hospitals [facility]08-29-2022 Miscellaneous Notes* Telephone Encounter - Misty Rollins LPN - 04/30/2022 9:52 AM EDT Patient phones requesting refills as follows: Requested Prescriptions Pending Prescriptions Disp Refills venlafaxine ER (EFFEXOR XR) 150 mg 24 hr capsule 90 capsule 3 Sig: Take 1 capsule by mouth once daily. MYRNA 03/22/22 NOV 09/24/22 Please review and advise. Misty Rollins LPN documented in this encounterUniversity Hospitals [facility] Center08-19-2022 History of Present illness Narrative* Francy Hoffman PA-C - 04/20/2022 11:31 AM EDT In lieu of an in-person visit due to COVID-19 concerns, a virtual visit was performed on the patient. Patient is aware that I am not fully able to assess symptoms and do a full physical examination including vital signs assessment at this time. Patient consents to this encounter. FOLLOW UP VISIT - ENDOSCOPY NAME: Molly Babb [facility] NO.: [id number] DATE OF SERVICE: 04/20/2022 : 1965 REFERRING PHYSICIAN: Danial Polo MD Molly is a patient I am following with Dr. Parsons for screening colonoscopy. Dr. Parsons performed lower endoscopy at [facility] on 04/12/22. The patient was found to have a transverse colon polyp and proximal rectal polyp. Pathology demonstrated: FINAL DIAGNOSIS A. Colon, transverse, biopsy: - Fragments of markedly cauterized colonic mucosa, not further characterizable. B. Colon, rectum, biopsy: - Fragments of tubulovillous adenoma. The patient notes no complaints since the procedure. General: patient is alert, cooperative, pleasant and in no acute distress Assessment IMPRESSION: s/p colonoscopy with polypectomy-tubulovillous adenoma PLAN: The operative findings and pathology report were reviewed with the patient, and the patient has hadthe opportunity to ask questions and have questions answered. If the patient notes any problems or changes in bowel function, the patient should contact me immediately. Otherwise I recommend follow up endoscopy in 3 years. HM updated and recall letter generated. Patient verbalized understanding of all above and agreed with the plan Diagnoses: (D36.9) Tubulovillous adenoma (primary encounter diagnosis) (Z86.010) History of colonic polyps I spent a total of 22 minutes on the date of the service which included preparing to see the patient, completing clinical documentation, obtaining and/or reviewing separately obtained history, counseling and educating the patient/family/caregiver, independently interpreting results (not separately r eported), and communicating results to the patient/family/caregiver. Francy Hoffman PA-C documented in this encounterUniversity Hospitals Conneaut [facility] Center08-11-2022 NoteHNO ID: [id number] Author: Maru Arechiga RN Service: Nursing Author Type: Registered Nurse Type: Nursing Progress Note Filed: 04/12/2022 8:29 AM Note Text: Pt ready for procedure. Denies any questions or concerns at this time.[facility]08-11-2022 History and physical note* Jeanette Parsons MD - 04/12/2022 9:00 AM EDT UPDATED HISTORY AND PHYSICAL EXAMINATION SERVICE DATE: 04/12/2022 SERVICE TIME: 8:35 PHYSICAL EXAM MUST BE COMPLETED ON ADMISSION The History and Physical (completed in the past 30 days) has been reviewed and the patient has beenexamined. The contents accurately reflect the patient's condition with the following additions or revisions since the H&P was completed. Examination indicates no changes. This H&P can be found in the Electronic Medical Record . SIGNATURE: Jeanette Parsons MD PATIENT NAME: Molly Babb DATE: April 12, 2022 TIME: 9:19 AM Source Note - Jeanette Parsons MD - 04/12/2022 9:00 AM EDT HISTORY AND PHYSICAL Molly D Rey 1965 REFERRING PHYSICIAN: Danial Polo MD CHIEF COMPLAINT: Consult (Colonoscopy) HPI: The patient is a 56 year old female referred for endoscopy. She presents for consideration of screening for colon cancer via colonoscopy. She notes occasional bright blood per rectum on the toilet paper which she attributes to hemorrhoids. The patient denies blood in stools, denies abdominal pain, and denies changes in bowel habits. The patient notes no colon cancer in immediate family. The patient has not had previous colonoscopy. 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 Cholecalciferol, Vitamin D3, (VITAMIN D-3) 2,000 unit Tab Take 1 tablet by mouth once daily. peg 3350-Electrolytes (GOLYTELY) 236-22.74-6.74 -5.86 gram suspension Refer to printed prep instructions from your provider. ALLERGIES: Patient has no known allergies. PERSONAL HISTORY: Social History Tobacco Use Smoking status: Never Smoker Smokeless tobacco: Never Used Substance Use Topics Alcohol use: No Drug use: No FAMILY HISTORY Problem Relation Age of Onset Heart Father Heart Mother aortic calcifications other (PARKINSON'S DISEASE) Mother None Sister None Brother The review of systems data was entered by the nurse and reviewed by me Nursing Notes: Karla Weinberg 03/28/2022 3:42 PM Signed REVIEW OF SYSTEMS: General: The patient denies fatigue, denies weight loss, denies weight gain, denies feeling hot, and denies feelings of cold. Eyes: The patient denies glaucoma, denies eye injury/surgery, wears glasses or contacts. Ear/Nose/Throat: The patient denies allergies, denies hayfever, denies ear infections, and denies bloody noses. Cardiovascular: The patient denies chest pain, denies heart disease, denies high blood pressure,denies cardiac stent, denies prior heart attack, denies irregular heart beat, denies high cholesterol, denies poor circulation, denies heart failure, other cardiac issues, denies claudication, denies cold feet, denies peripheral arterial stent. Respiratory: The patient denies tuberculosis, denies pneumonia, denies frequent cough, denies pulmonary embolism, denies shortness of breath, and denies coughing up blood. Gastrointestinal: The patient denies difficulty swallowing, denies acid reflux, denies ulcers, denies vomiting, denies jaundice/hepatitis, denies gallbladder problems, denies black or tarry stools, denies hemorrhoids, denies bleeding from rectum, denies diverticulitis, denies constipation, denies diarrhea, denies loss of stool control, and denies hernias. Kidney/Bladder: The patient NOTES kidney stones, denies urine infections, and denies bloody urine. Skin: The patient denies a history of skin cancer, denies bleeding/changing moles, and denies a history of skin rash. Neurologic: The patient denies a history of epilepsy/convulsions, denies headaches, denies head/spinal injuries, and denies stroke/TIA. Psychiatric: The patient denies psychiatric medications, denies depression, and denies voices, denies substance abuse. Endocrine: The patient denies thyroid disorders, denies diabetes, and denies hormonal problems. Hematologic: The patient denies a history of bruising, denies bleeding, and denies anemia, denies blood clots. Infections: The patient denies a history of measles and mumps, denies rheumatic fever, and denies sexually transmitted diseases. Musculoskeletal: The patient denies back pain/injury, denies back problems, denies sciatica, deniesknee/foot trouble, denies arthritis, or denies gout. When was patient's last Mammogram screening? 06/06/2021 Last Colonoscopy: None Karla Weinberg PHYSICAL EXAMINATION: General: The patient is 56 year old female, well nourished, well hydrated in no acute distress. Thepatient is oriented to time, place, and person. VITALS: Blood pressure 136/81, pulse 87, temperature 36.5 C (97.7 F), height 162.6 cm (5' 4 ), weight 88.5 kg (195 lb), last menstrual period 07/29/2008, SpO2 96 %. Body mass index is 33.47 kg/m . Head: Normal cephalic, atraumatic Eyes: pupils are equally round, sclera are clear/anicteric Neck is supple with no tracheal deviation Respiratory: Normal respiratory excursion and pattern. Abdominal exam: benign Extremities: no clubbing, cyanosis or edema. Neuro: non focal Psych: normal mood IMPRESSION: screening for colon cancer via colonoscopy PLAN: I have discussed the above with the patient. I have offered colonoscopy , possible biopsies I have explained the procedure to the patient. I have counseled the patient as to the risks of the procedure, including but not limited to: infection, bleeding, injury to any intrabdominal organs such as liver/spleen, perforation of the GI tract,inability to complete the procedure, complications of anesthesia, etc. - the patient understands. The patient was offered a surgery/procedure at a [facility]. The provider and patient have discussed in detail the risk of exposure to and/or potential harm posed by the COVID-19 viruswith having a surgery/procedure at this time versus the risk of delaying the surgery/procedure. It is not possible to know either the risk of delaying the surgery or procedure or chance of getting aninfection with perfect accuracy, but a joint decision was made between the patient and the providerto proceed at this time with the scheduled surgery/procedure. I have explained to the patient the difference between IV conscious sedation and MAC anesthesia - and I have offered either, according to the patient's wishes. I have explained that with IV conscioussedation there is no anesthesia provider available and therefore there is a limitation of the amount of IV medications that can be given and that the patient may wake up in the middle of the procedure and/or experience pain/discomfort during the procedure. Further discussion was done and the patient was given the opportunity to ask questions and all questions were answered. The patient chooses IVconscious sedation. Patient was counseled that if there are changes in his/her medical condition, to let the office know if surgery should proceed. If there are changes in patient's medical condition from time of this encounter to the day of the procedure that preclude anesthesia, patient may have procedure cancelled for patient's safety. The patient wishes to proceed. I have answered all questions to the patient s satisfaction and the patient has no further questions. Diagnoses: (Z12.11) Screening for colon cancer Jeanette Parsons MD * Jeanette Parsons MD - 04/12/2022 9:00 AM EDT HISTORY AND PHYSICAL Molly Babb 1965 REFERRING PHYSICIAN: Danial Polo MD CHIEF COMPLAINT: Consult (Colonoscopy) HPI: The patient is a 56 year old female referred for endoscopy. She presents for consideration of screening for colon cancer via colonoscopy. She notes occasional bright blood per rectum on the toilet paper which she attributes to hemorrhoids. The patient denies blood in stools, denies abdominal pain, and denies changes in bowel habits. The patient notes no colon cancer in immediate family. The patient has not had previous colonoscopy. 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 Cholecalciferol, Vitamin D3, (VITAMIN D-3) 2,000 unit Tab Take 1 tablet by mouth once daily. peg 3350-Electrolytes (GOLYTELY) 236-22.74-6.74 -5.86 gram suspension Refer to printed prep instructions from your provider. ALLERGIES: Patient has no known allergies. PERSONAL HISTORY: Social History Tobacco Use Smoking status: Never Smoker Smokeless tobacco: Never Used Substance Use Topics Alcohol use: No Drug use: No FAMILY HISTORY Problem Relation Age of Onset Heart Father Heart Mother aortic calcifications other (PARKINSON'S DISEASE) Mother None Sister None Brother The review of systems data was entered by the nurse and reviewed by tn Nursing Notes: Karla Weinberg 03/28/2022 3:42 PM Signed REVIEW OF SYSTEMS: General: The patient denies fatigue, denies weight loss, denies weight gain, denies feeling hot, and denies feelings of cold. Eyes: The patient denies glaucoma, denies eye injury/surgery, wears glasses or contacts. Ear/Nose/Throat: The patient denies allergies, denies hayfever, denies ear infections, and denies bloody noses. Cardiovascular: The patient denies chest pain, denies heart disease, denies high blood pressure,denies cardiac stent, denies prior heart attack, denies irregular heart beat, denies high cholesterol, denies poor circulation, denies heart failure, other cardiac issues, denies claudication, denies cold feet, denies peripheral arterial stent. Respiratory: The patient denies tuberculosis, denies pneumonia, denies frequent cough, denies pulmonary embolism, denies shortness of breath, and denies coughing up blood. Gastrointestinal: The patient denies difficulty swallowing, denies acid reflux, denies ulcers, denies vomiting, denies jaundice/hepatitis, denies gallbladder problems, denies black or tarry stools, denies hemorrhoids, denies bleeding from rectum, denies diverticulitis, denies constipation, denies diarrhea, denies loss of stool control, and denies hernias. Kidney/Bladder: The patient NOTES kidney stones, denies urine infections, and denies bloody urine. Skin: The patient denies a history of skin cancer, denies bleeding/changing moles, and denies a history of skin rash. Neurologic: The patient denies a history of epilepsy/convulsions, denies headaches, denies head/spinal injuries, and denies stroke/TIA. Psychiatric: The patient denies psychiatric medications, denies depression, and denies voices, denies substance abuse. Endocrine: The patient denies thyroid disorders, denies diabetes, and denies hormonal problems. Hematologic: The patient denies a history of bruising, denies bleeding, and denies anemia, denies blood clots. Infections: The patient denies a history of measles and mumps, denies rheumatic fever, and denies sexually transmitted diseases. Musculoskeletal: The patient denies back pain/injury, denies back problems, denies sciatica, deniesknee/foot trouble, denies arthritis, or denies gout. When was patient's last Mammogram screening? 06/06/2021 Last Colonoscopy: Michela Weinberg PHYSICAL EXAMINATION: General: The patient is 56 year old female, well nourished, well hydrated in no acute distress. Thepatient is oriented to time, place, and person. VITALS: Blood pressure 136/81, pulse 87, temperature 36.5 C (97.7 F), height 162.6 cm (5' 4 ), weight 88.5 kg (195 lb), last menstrual period 07/29/2008, SpO2 96 %. Body mass index is 33.47 kg/m . Head: Normal cephalic, atraumatic Eyes: pupils are equally round, sclera are clear/anicteric Neck is supple with no tracheal deviation Respiratory: Normal respiratory excursion and pattern. Abdominal exam: benign Extremities: no clubbing, cyanosis or edema. Neuro: non focal Psych: normal mood IMPRESSION: screening for colon cancer via colonoscopy PLAN: I have discussed the above with the patient. I have offered colonoscopy , possible biopsies I have explained the procedure to the patient. I have counseled the patient as to the risks of the procedure, including but not limited to: infection, bleeding, injury to any intrabdominal organs such as liver/spleen, perforation of the GI tract,inability to complete the procedure, complications of anesthesia, etc. - the patient understands. The patient was offered a surgery/procedure at a [facility] facility. The provider and patient have discussed in detail the risk of exposure to and/or potential harm posed by the COVID-19 viruswith having a surgery/procedure at this time versus the risk of delaying the surgery/procedure. It is not possible to know either the risk of delaying the surgery or procedure or chance of getting aninfection with perfect accuracy, but a joint decision was made between the patient and the providerto proceed at this time with the scheduled surgery/procedure. I have explained to the patient the difference between IV conscious sedation and MAC anesthesia - and I have offered either, according to the patient's wishes. I have explained that with IV conscioussedation there is no anesthesia provider available and therefore there is a limitation of the amount of IV medications that can be given and that the patient may wake up in the middle of the procedure and/or experience pain/discomfort during the procedure. Further discussion was done and the patient was given the opportunity to ask questions and all questions were answered. The patient chooses IVconscious sedation. Patient was counseled that if there are changes in his/her medical condition, to let the office know if surgery should proceed. If there are changes in patient's medical condition from time of this encounter to the day of the procedure that preclude anesthesia, patient may have procedure cancelled for patient's safety. The patient wishes to proceed. I have answered all questions to the patient s satisfaction and the patient has no further questions. Diagnoses: (Z12.11) Screening for colon cancer Jeanette Parsons MD documented in this encounterUniversity Hospitals [facility]08-11-2022 Miscellaneous Notes* Brief Op Note - Jeanette Parsons MD - 04/12/2022 9:00 AM EDT BRIEF OPERATIVE NOTE SURGERY DATE: 04/12/2022 Incision/Procedure Start Time: 8:39 cecal intubation time: 8:49 Incision Close/Procedure End Time: 9:18 Surgeon(s)/Proceduralist(s) and Court Administrator(s): tanisha Procedures: Colonoscopy with hot snare polypectomy Anesthesia: MAC Findings: transverse colon polyp - < 1 cm; proximal rectal polyp - 2 cm; hemorrhoids Estimated Blood Loss: minimal Specimens: transverse colon polyp, proximal rectal polyp Complications: None Preop Diagnosis: screening for colon cancer Postop Diagnosis: colon polyps, hemorrhoids SIGNATURE: Jeanette Parsons MD PATIENT NAME: Molly Babb DATE: April 12, 2022 TIME: 9:20 AM documented in this encounterUniversity Hospitals [facility]08-11-2022 Nurse Note* Maru Arechiga RN - 04/12/2022 8:29 AM EDT Pt ready for procedure. Denies any questions or concerns at this time. documented in this encounterUniversity Hospitals [facility]07-27-2022 History of Present illness Narrative* Jeanette Parsons MD - 03/28/2022 8:08 PM EDT HISTORY AND PHYSICAL Molly D Rey 1965 REFERRING PHYSICIAN: Danial Polo MD CHIEF COMPLAINT: Consult (Colonoscopy) HPI: The patient is a 56 year old female referred for endoscopy. She presents for consideration of screening for colon cancer via colonoscopy. She notes occasional bright blood per rectum on the toilet paper which she attributes to hemorrhoids. The patient denies blood in stools, denies abdominal pain, and denies changes in bowel habits. The patient notes no colon cancer in immediate family. The patient has not had previous colonoscopy. 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 Cholecalciferol, Vitamin D3, (VITAMIN D-3) 2,000 unit Tab Take 1 tablet by mouth once daily. peg 3350-Electrolytes (GOLYTELY) 236-22.74-6.74 -5.86 gram suspension Refer to printed prep instructions from your provider. ALLERGIES: Patient has no known allergies. PERSONAL HISTORY: Social History Tobacco Use Smoking status: Never Smoker Smokeless tobacco: Never Used Substance Use Topics Alcohol use: No Drug use: No FAMILY HISTORY Problem Relation Age of Onset Heart Father Heart Mother aortic calcifications other (PARKINSON'S DISEASE) Mother None Sister None Brother The review of systems data was entered by the nurse and reviewed by tn Nursing Notes: Karla Weinberg 03/28/2022 3:42 PM Signed REVIEW OF SYSTEMS: General: The patient denies fatigue, denies weight loss, denies weight gain, denies feeling hot, and denies feelings of cold. Eyes: The patient denies glaucoma, denies eye injury/surgery, wears glasses or contacts. Ear/Nose/Throat: The patient denies allergies, denies hayfever, denies ear infections, and denies bloody noses. Cardiovascular: The patient denies chest pain, denies heart disease, denies high blood pressure,denies cardiac stent, denies prior heart attack, denies irregular heart beat, denies high cholesterol, denies poor circulation, denies heart failure, other cardiac issues, denies claudication, denies cold feet, denies peripheral arterial stent. Respiratory: The patient denies tuberculosis, denies pneumonia, denies frequent cough, denies pulmonary embolism, denies shortness of breath, and denies coughing up blood. Gastrointestinal: The patient denies difficulty swallowing, denies acid reflux, denies ulcers, denies vomiting, denies jaundice/hepatitis, denies gallbladder problems, denies black or tarry stools, denies hemorrhoids, denies bleeding from rectum, denies diverticulitis, denies constipation, denies diarrhea, denies loss of stool control, and denies hernias. Kidney/Bladder: The patient NOTES kidney stones, denies urine infections, and denies bloody urine. Skin: The patient denies a history of skin cancer, denies bleeding/changing moles, and denies a history of skin rash. Neurologic: The patient denies a history of epilepsy/convulsions, denies headaches, denies head/spinal injuries, and denies stroke/TIA. Psychiatric: The patient denies psychiatric medications, denies depression, and denies voices, denies substance abuse. Endocrine: The patient denies thyroid disorders, denies diabetes, and denies hormonal problems. Hematologic: The patient denies a history of bruising, denies bleeding, and denies anemia, denies blood clots. Infections: The patient denies a history of measles and mumps, denies rheumatic fever, and denies sexually transmitted diseases. Musculoskeletal: The patient denies back pain/injury, denies back problems, denies sciatica, deniesknee/foot trouble, denies arthritis, or denies gout. When was patient's last Mammogram screening? 06/06/2021 Last Colonoscopy: None Karla Weinberg PHYSICAL EXAMINATION: General: The patient is 56 year old female, well nourished, well hydrated in no acute distress. Thepatient is oriented to time, place, and person. VITALS: Blood pressure 136/81, pulse 87, temperature 36.5 C (97.7 F), height 162.6 cm (5' 4 ), weight 88.5 kg (195 lb), last menstrual period 07/29/2008, SpO2 96 %. Body mass index is 33.47 kg/m . Head: Normal cephalic, atraumatic Eyes: pupils are equally round, sclera are clear/anicteric Neck is supple with no tracheal deviation Respiratory: Normal respiratory excursion and pattern. Abdominal exam: benign Extremities: no clubbing, cyanosis or edema. Neuro: non focal Psych: normal mood Assessment IMPRESSION: screening for colon cancer via colonoscopy PLAN: I have discussed the above with the patient. I have offered colonoscopy , possible biopsies I have explained the procedure to the patient. I have counseled the patient as to the risks of the procedure, including but not limited to: infection, bleeding, injury to any intrabdominal organs such as liver/spleen, perforation of the GI tract,inability to complete the procedure, complications of anesthesia, etc. the patient understands. The patient was offered a surgery/procedure at a [facility] facility. The provider and patient have discussed in detail the risk of exposure to and/or potential harm posed by the COVID-19 viruswith having a surgery/procedure at this time versus the risk of delaying the surgery/procedure. It is not possible to know either the risk of delaying the surgery or procedure or chance of getting aninfection with perfect accuracy, but a joint decision was made between the patient and the providerto proceed at this time with the scheduled surgery/procedure. I have explained to the patient the difference between IV conscious sedation and MAC anesthesia - and I have offered either, according to the patient's wishes. I have explained that with IV conscioussedation there is no anesthesia provider available and therefore there is a limitation of the amount of IV medications that can be given and that the patient may wake up in the middle of the procedure and/or experience pain/discomfort during the procedure. Further discussion was done and the patient was given the opportunity to ask questions and all questions were answered. The patient chooses IVconscious sedation. Patient was counseled that if there are changes in his/her medical condition, to let the office know if surgery should proceed. If there are changes in patient's medical condition from time of this encounter to the day of the procedure that preclude anesthesia, patient may have procedure cancelled for patient's safety. The patient wishes to proceed. I have answered all questions to the patient s satisfaction and the patient has no further questions. Diagnoses: (Z12.11) Screening for colon cancer I have confirmed and edited as necessary, the PFSH and ROS obtained by others. Consultation requested by Dr.William Polo for an opinion regarding patient's screening for colon cancer. My final recommendations will be communicated back to the requesting physician by way of shared Medical record or letter to requesting physician via US mail. Return to Clinic: The patient will be scheduled at [facility], as she lives in [place], on April 12 Medical Decision Making: Risk: Low: Low risk from testing/treatment Medical Decision Making Level: 2 - Straightforward Jeanette Parsons MD documented in this encounterUniversity Hospitals [facility]07-27-2022 Instructions* Patient Instructions* Jeanette Parsons MD - 03/28/2022 3:49 PM EDT Images from the original note were not included. Bowel Preparation Instructions for: Golytely, Nulytely, Trilyte or Colyte (polyethylene glycol 3350and electrolytes) IF YOU DO NOT FOLLOW THESE DIRECTIONS, YOUR COLONOSCOPY WILL BE CANCELLED. Howard Instructions: Your bowel must be empty so that your doctor can clearly view your colon. Follow all of the instructions in this handout EXACTLY as they are written. Do NOT eat any solid food the ENTIRE day before your colonoscopy. Drink only clear liquids. Buy your bowel preparation at least 5 days before your colonoscopy. TRANSPORTATION on the Day of Your Exam A responsible person MUST be present with you at Check In prior to your colonoscopy and REMAIN in the endoscopy area until you are discharged. You are NOT ALLOWED to drive, take a taxi or bus, or leave the Endoscopy Center ALONE. If you do not have a responsible driver merchandiser (family member or friend) with you to take you home, your exam cannot be done with sedation and will be cancelled. Please bring a list of all of your current medications, including any Over-the Counter medications with you. Medications If you take insulin, diabetic medications or blood thinners such as Coumadin (warfarin), Plavix (clopidogrel), Ticlid (ticlopidine hydrochloride), Agrylin (anagrelide), Xarelto (Rivaroxaban), Pradaxa(Dabigatran), Eliquis (Apixaban), and Effient (Prasugrel). You MUST call the doctors who orders those medicines for instructions on altering the dosage before your colonoscopy. All other medications should be taken the day of the exam with a sip of water including ASPIRIN. Five (5) Days Before Your Colonoscopy Do NOT take medicines that stop diarrhea - such as Imodium, Kaopectate, or Pepto Bismol. Do NOT take fiber supplements - such as Metamucil, Citrucel, or Perdiem. Do NOT take products that contain iron - such as multi-vitamins (the label lists what is in the products). Do NOT take Vitamin E. Buy the prescription bowel preparation solution at your local pharmacy or drugstore pharmacy. 1 08/2019 Bowel Preparation Instructions for: Golytely, Nulytely, Trilyte or Colyte (polyethylene glycol 3350and electrolytes) Three (3) Days Before Your Colonoscopy Do NOT eat high-fiber foods - such as popcorn, beans, seeds (flax, sunflower, quinoa), multigrain bread, nuts, salad/vegetables, or fresh and dried fruit. One (1) Day Before Your Colonoscopy Only drink clear liquids the ENTIRE DAY before your colonoscopy. Do NOT eat any solid foods. Drink at least 8 ounces of clear liquids every hour after waking up. The clear liquids you can drink include: Clear Liquid (NO RED LIQUIDS) DO NOT DRINK Gatorade, Pedialyte or Powerade Clear broth or bouillon Coffee or tea (no milk or non-dairy creamer) Carbonated and non-carbonated soft drinks Nima-Aid or other fruit flavored drinks Strained fruit juices (no pulp) Jell-O, popsicles, hard candy Water Alcohol Milk or non-dairy creamers Noodles or vegetables in soup Juice with pulp Liquid you cannot see through The bowel preparation solution will be consumed in two parts. Mix the solution the evening before your colonoscopy and refrigerate before drinking. You may add the flavor pack that came with the bowel preparation. Do NOT add ice, sugar or any other flavorings to the solution. Part 1 At 6:00 PM - Evening before your colonoscopy Drink an 8-oz glass of bowel preparation every 10 minutes for a total of 8 glasses. You may continue to drink clear liquids until midnight. Part 2 On the day of your colonoscopy you may drink clear liquids up to (three) 3 hours before your procedure. 4 1/2 hours before your colonoscopy Drink an 8-oz glass of bowel preparation every 10 minutes for a total of 8 glasses. Fifteen (15) minutes later, drink an 8-oz glass of clear liquids every 15 minutes for a total of 2 glasses. You may continue to drink clear liquids up to (three) 3 hours before your exam. 08/2019 [place] [id number] Nurse Note* Karla Weinberg - 03/28/2022 3:40 PM EDT REVIEW OF SYSTEMS: General: The patient denies fatigue, denies weight loss, denies weight gain, denies feeling hot, and denies feelings of cold. Eyes: The patient denies glaucoma, denies eye injury/surgery, wears glasses or contacts. Ear/Nose/Throat: The patient denies allergies, denies hayfever, denies ear infections, and denies bloody noses. Cardiovascular: The patient denies chest pain, denies heart disease, denies high blood pressure,denies cardiac stent, denies prior heart attack, denies irregular heart beat, denies high cholesterol, denies poor circulation, denies heart failure, other cardiac issues, denies claudication, denies cold feet, denies peripheral arterial stent. Respiratory: The patient denies tuberculosis, denies pneumonia, denies frequent cough, denies pulmonary embolism, denies shortness of breath, and denies coughing up blood. Gastrointestinal: The patient denies difficulty swallowing, denies acid reflux, denies ulcers, denies vomiting, denies jaundice/hepatitis, denies gallbladder problems, denies black or tarry stools, denies hemorrhoids, denies bleeding from rectum, denies diverticulitis, denies constipation, denies diarrhea, denies loss of stool control, and denies hernias. Kidney/Bladder: The patient NOTES kidney stones, denies urine infections, and denies bloody urine. Skin: The patient denies a history of skin cancer, denies bleeding/changing moles, and denies a history of skin rash. Neurologic: The patient denies a history of epilepsy/convulsions, denies headaches, denies head/spinal injuries, and denies stroke/TIA. Psychiatric: The patient denies psychiatric medications, denies depression, and denies voices, denies substance abuse. Endocrine: The patient denies thyroid disorders, denies diabetes, and denies hormonal problems. Hematologic: The patient denies a history of bruising, denies bleeding, and denies anemia, denies blood clots. Infections: The patient denies a history of measles and mumps, denies rheumatic fever, and denies sexually transmitted diseases. Musculoskeletal: The patient denies back pain/injury, denies back problems, denies sciatica, deniesknee/foot trouble, denies arthritis, or denies gout. When was patient's last Mammogram screening? 06/06/2021 Last Colonoscopy: None Karla Weinberg documented in this encounterUniversity [facility] Miscellaneous Notes* Telephone Encounter - Gladys Reynaga MA - 03/26/2022 2:08 PM EDT Patient notified and voiced understanding. Gladys Reynaga MA * Telephone Encounter - Danial Polo MD - 03/26/2022 12:39 PM EDT Echo is overall ok. Has very minimal back flow across one valve that is really not significant. Could consider repeating an echo in three years. Cholesterol is up. Watch diet. documented in this encounterUniversity [facility]22 History of Present illness Narrative* Danial Polo MD - 03/22/2022 3:51 PM EDT Patient presents with: 6 Month Exam HPI: Patient presents today for office visit for follow Up. Her fibro has been stable. No side effects. Energy levels. Sleeping well. No side effects. No major side effects. Fibro symptoms are good. MEDICATIONS: Current Outpatient Medications Medication Sig venlafaxine ER (EFFEXOR XR) 150 mg 24 hr capsule Take 1 capsule by mouth once daily. Cholecalciferol, Vitamin D3, (VITAMIN D-3) 2,000 unit Tab Take 1 tablet by mouth once daily. No current facility-administered medications for this visit. 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 Fibromyalgia Hyperlipidemia LDL goal <130 10/11/2016 Malignant neoplasm of breast (female), unspecified site 11/07 left, chemo and radiation PMH - PAST MEDICAL HISTORY OF CYCLING CONTROL PAST SURGICAL HISTORY Procedure Laterality Date ARTHROSCOPY OF JOINT UNLISTED X 2- right knee DELIVERY ONLY LAPAROSCOPY W/RMVL ADNEXAL STRUCTURES 05/10/09 Laprascpic BSO MASTECTOMY, PARTIAL 11/18/2007 Left upper outer PAST SURGICAL HISTORY OF HYMENECTOMY FAMILY HISTORY Problem Relation Age of Onset Heart Father Heart Mother aortic calcifications other (PARKINSON'S DISEASE) Mother None Sister None Brother Social History Tobacco Use Smoking status: Never Smoker Smokeless tobacco: Never Used Substance Use Topics Alcohol use: No Drug use: No Reviewed current medications, allergies, past medical history, surgical history, family history andsocial history today. REVIEW OF SYSTEMS no chest pain or shortness of breath. no issues with urine or bowels. All other reviewed and negative other than HPI. HEALTH MAINTENANCE: Reviewed health maintenance issues today and recommended the following in detail. HEPATITIS C SCREENING Never done HIV SCREENING Never done COLORECTAL CANCER SCREENING-see surgery PAP TESTING -seeing Rissa De La Cruz. MAMMOGRAM - per client relations representative. VITALS: BP 144/92 Pulse 72 Wt 87.5 kg (193 lb) LMP 07/29/2008 BMI 33.13 kg/m Last 4 Encounter Wt Readings: Date: Wt: 03/22/2022 87.5 kg (193 lb) 09/26/2021 81.6 kg (180 lb) 07/29/2020 88.5 kg (195 lb) 11/03/2018 88 kg (194 lb) PHYSICAL EXAMINATION: General appearance: Well appearing, alert, in no acute distress, well-hydrated, well nourished. Skin: Skin color, texture, turgor normal, no suspicious rashes or lesions Head: Normocephalic, no masses, lesions, tenderness or abnormalities Lungs: Lungs clear to auscultation. No wheezing, rhonchi, rales Heart: II/ murmur over LLSB. Normal s1 and s2 Abdomen: Normal abdominal exam, Abdomen soft, non-tender. Bowel sounds normal. No masses, organomegaly Extremities: No deformities, edema, skin discoloration, clubbing or cyanosis. Good capillary refill. Musculoskeletal: No joint swelling, deformity, or tenderness Peripheral pulses: Normal Neuro: Negative. ASSESSMENT/PLAN: 1. Fibromyalgia - ICD9: 729.1, ICD10: M79.7 (primary diagnosis) - continue meds. - CBC + DIFF - COMP METABOLIC PANEL 2. Screening for colon cancer - ICD9: V76.51, ICD10: Z12.11 - CONSULT TO GENERAL SURGERY 3. Hyperlipidemia LDL goal <130 - ICD9: 272.4, ICD10: E78.5 - good control - Continue current medication. - COMP METABOLIC PANEL - LIPID PANEL BASIC 4. History of breast cancer in female - ICD9: V10.3, ICD10: Z85.3 - CBC + DIFF - COMP METABOLIC PANEL 5. Vitamin D deficiency - ICD9: 268.9, ICD10: E55.9 - VITAMIN D 25 HYDROXY 6. Screening for HIV (human immunodeficiency virus) - ICD9: V73.89, ICD10: Z11.4 - HIV RAPID SCREEN 7. Need for hepatitis C screening test - ICD9: V73.89, ICD10: Z11.59 - HEP C AB IA W/CONF SCRN 8. murmur - had echos remotely-30 years ago Recheck echo. Danial Polo MD RTO in six months Call with bp in two weeks. 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 09/26/19 22 Muscle pain 12/12/2009 09/26/2021 Unspecified vitamin D deficiency 12/08/2008 12/08/2008 Enthesopathy of hip region 06/04/200809/26 Lump or mass in breast 10/31/2007 9 documented as of this encounter (statuses as of 03/22/2022) [facility] History of Past illness Narrative* Problem Noted Date Resolved Date 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 Strain of left knee and leg 11/15/201509/03 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 09/26/19 22 Muscle pain 12/12/2009 09/26/2021 Unspecified vitamin D deficiency 12/08/2008 12/08/2008 Enthesopathy of hip region 06/04/200809/26 Lump or mass in breast 10/31/2007 9 documented as of this encounter (statuses as of 03/26/2022) [facility] History of Past illness Narrative* Problem Noted Date Resolved Date 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 Strain of left knee and leg 11/15/201509/03 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 09/26/19 22 Muscle pain 12/12/2009 09/26/2021 Unspecified vitamin D deficiency 12/08/2008 12/08/2008 Enthesopathy of hip region 06/04/200809/26 Lump or mass in breast 10/31/2007 9 documented as of this encounter (statuses as of 03/31/2022) [facility] of Past illness Narrative* Problem Noted Date Resolved Date 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 Strain of left knee and leg 11/15/201509/03 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 09/26/19 22 Muscle pain 12/12/2009 09/26/2021 Unspecified vitamin D deficiency 12/08/2008 12/08/2008 Enthesopathy of hip region 06/04/200809/26 Lump or mass in breast 10/31/2007 9 documented as of this encounter (statuses as of 04/13/2022) [facility] of [facility] illness Narrative* Problem Noted Date Resolved Date 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 Strain of left knee and leg 11/15/201509/03 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 09/26/19 22 Muscle pain 12/12/2009 09/26/2021 Unspecified vitamin D deficiency 12/08/2008 12/08/2008 Enthesopathy of hip region 06/04/200809/26 Lump or mass in breast 10/31/2007 9 documented as of this encounter (statuses as of 04/26/2022) [facility] of [facility] illness Narrative* Problem Noted Date Resolved Date 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 Strain of left knee and leg 11/15/201509/03 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 09/26/19 22 Muscle pain 12/12/2009 09/26/2021 Unspecified vitamin D deficiency 12/08/2008 12/08/2008 Enthesopathy of hip region 06/04/200809/26 Lump or mass in breast 10/31/2007 9 documented as of this encounter (statuses as of 04/30/2022) [facility] of [facility] illness Narrative* Problem Noted Date Resolved Date 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 Strain of left knee and leg 11/15/201509/03 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 09/26/19 22 Muscle pain 12/12/2009 09/26/2021 Unspecified vitamin D deficiency 12/08/2008 12/08/2008 Enthesopathy of hip region 06/04/200809/26 Lump or mass in breast 10/31/2007 9 documented as of this encounter (statuses as of 05/25/2022) [facility] illness Narrative* Problem Noted Date Resolved Date 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 Strain of left knee and leg 11/15/201509/03 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 09/26/19 22 Muscle pain 12/12/2009 09/26/2021 Unspecified vitamin D deficiency 12/08/2008 12/08/2008 Enthesopathy of hip region 06/04/200809/26 Lump or mass in breast 10/31/2007 9 documented as of this encounter (statuses as of 07/25/2022) [facility] of [facility] illness Narrative* Problem Noted Date Resolved Date 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 Strain of left knee and leg 11/15/201509/03 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 09/26/19 22 Muscle pain 12/12/2009 09/26/2021 Unspecified vitamin D deficiency 12/08/2008 12/08/2008 Enthesopathy of hip region 06/04/200809/26 Lump or mass in breast 10/31/2007 9 documented as of this encounter (statuses as of 08/21/2022) [facility] of [facility] illness Narrative* Problem Noted Date Resolved Date 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 Strain of left knee and leg 11/15/201509/03 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 09/26/19 22 Muscle pain 12/12/2009 09/26/2021 Unspecified vitamin D deficiency 12/08/2008 12/08/2008 Enthesopathy of hip region 06/04/200809/26 Lump or mass in breast 10/31/2007 9 documented as of this encounter (statuses as of 09/24/2022) [facility] of [facility] illness Narrative* Problem Noted Date Resolved Date 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 Strain of left knee and leg 11/15/201509/03 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 09/26/19 22 Muscle pain 12/12/2009 09/26/2021 Unspecified vitamin D deficiency 12/08/2008 12/08/2008 Enthesopathy of hip region 06/04/200809/26 Lump or mass in breast 10/31/2007 9 documented as of this encounter (statuses as of 10/10/2022) [facility] illness Narrative* Problem Noted Date Resolved Date 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 Strain of left knee and leg 11/15/201509/03 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 09/26/19 22 Muscle pain 12/12/2009 09/26/2021 Unspecified vitamin D deficiency 12/08/2008 12/08/2008 Enthesopathy of hip region 06/04/200809/26 Lump or mass in breast 10/31/2007 9 documented as of this encounter (statuses as of 10/23/2022) [facility] of [facility] illness Narrative* Problem Noted Date Resolved Date 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 Strain of left knee and leg 11/15/201509/03 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 09/26/19 22 Muscle pain 12/12/2009 09/26/2021 Unspecified vitamin D deficiency 12/08/2008 12/08/2008 Enthesopathy of hip region 06/04/200809/26 Lump or mass in breast 10/31/2007 9 documented as of this encounter (statuses as of 12/01/2022) [facility] of [facility] illness Narrative* Problem Noted Date Resolved Date 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 Strain of left knee and leg 11/15/201509/03 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 09/26/19 22 Muscle pain 12/12/2009 09/26/2021 Unspecified vitamin D deficiency 12/08/2008 12/08/2008 Enthesopathy of hip region 06/04/200809/26 Lump or mass in breast 10/31/2007 9 documented as of this encounter (statuses as of 12/03/2022) [facility] illness Narrative* Problem Noted Date Resolved Date 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 Strain of left knee and leg 11/15/201509/03 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 09/26/19 22 Muscle pain 12/12/2009 09/26/2021 Unspecified vitamin D deficiency 12/08/2008 12/08/2008 Enthesopathy of hip region 06/04/200809/26 Lump or mass in breast 10/31/2007 9 documented as of this encounter (statuses as of 12/06/2022) [facility] Narrative* Problem Noted Date Resolved Date 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 Strain of left knee and leg 11/15/201509/03 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 09/26/19 22 Muscle pain 12/12/2009 09/26/2021 Unspecified vitamin D deficiency 12/08/2008 12/08/2008 Enthesopathy of hip region 06/04/200809/26 Lump or mass in breast 10/31/2007 9 documented as of this encounter (statuses as of 01/08/2023) [facility] illness Narrative* Problem Noted Date Diagnosed Date Resolved Date 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2021 Strain of left knee and leg 11/15/2015 09/26/2021 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09/03 Muscle pain 12/12/2009 09/26/2021 Unspecified vitamin D deficiency 12/08/2008 12/08/2008 Enthesopathy of hip region 06/04/2008 0 09/26/2021 Lump or mass in breast 10/31/200704/01 documented as of this encounter (statuses as of 04/04/2023) [facility] illness Narrative* Problem Noted Date Diagnosed Date Resolved Date 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2021 Strain of left knee and leg 11/15/2015 09/26/2021 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09/03 Muscle pain 12/12/2009 09/26/2021 Unspecified vitamin D deficiency 12/08/2008 12/08/2008 Enthesopathy of hip region 06/04/2008 0 09/26/2021 Lump or mass in breast 10/31/200704/01 documented as of this encounter (statuses as of 07/11/2023) [facility] illness Narrative* Problem Noted Date Diagnosed Date Resolved Date 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2021 Strain of left knee and leg 11/15/2015 09/26/2021 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09/03 Muscle pain 12/12/2009 09/26/2021 Unspecified vitamin D deficiency 12/08/2008 12/08/2008 Enthesopathy of hip region 06/04/2008 0 09/26/2021 Lump or mass in breast 10/31/200704/01 documented as of this encounter (statuses as of 07/30/2023) [facility] Diagnosis Fibromyalgia- Primary Mylagia and myositis, unspecified Screening for colon cancer Special screening for malignant neoplasms, colon Hyperlipidemia LDL goal <130 Other and unspecified hyperlipidemia History of breast cancer in female Personal history of malignant neoplasm of breast Vitamin D deficiency Unspecified vitamin D deficiency Screening for HIV (human immunodeficiency virus) Special screening examination for other specified viral diseases Need for hepatitis C screening test Special screening examination for other specified viral diseases Functional murmur [facility] Diagnosis Heart murmur Undiagnosed cardiac murmurs documented in this encounter [facility]* Diagnosis Screening for colon cancer Special screening for malignant neoplasms, colon documented in this encounter [facility] Diagnosis Screening for colon cancer- Primary Special screening for malignant neoplasms, colon [facility]* Diagnosis Tubulovillous adenoma- Primary Benign neoplasm of unspecified site History of colonic polyps Personal history of colonic polyps [facility] Diagnosis Central pain syndrome Fibromyalgia Mylagia and myositis, unspecified documented in this encounter [facility] Diagnosis Screening breast examination- Primary Breast screening, unspecified [facility] Diagnosis Central pain syndrome Fibromyalgia Mylagia and myositis, unspecified [facility] Diagnosis Central pain syndrome Fibromyalgia Mylagia and myositis, unspecified [facility]* Diagnosis Fibromyalgia- Primary Mylagia and myositis, unspecified Hyperlipidemia LDL goal <130 Other and unspecified hyperlipidemia History of breast cancer in female Personal history of malignant neoplasm of breast Vitamin D deficiency Unspecified vitamin D deficiency LORI (obstructive sleep apnea) Obstructive sleep apnea (adult) (pediatric) Primary hypertension Unspecified essential hypertension Tubulovillous adenoma Benign neoplasm of unspecified site [facility] Diagnosis Primary hypertension- Primary Unspecified essential hypertension [facility]* Diagnosis LORI (obstructive sleep apnea)- Primary Obstructive sleep apnea (adult) (pediatric) [facility] this [facility] Diagnosis Obstructive sleep apnea- Primary Obstructive sleep apnea (adult) (pediatric) [facility]* Diagnosis Fibromyalgia Mylagia and myositis, unspecified documented [facility] this encounter [facility] Diagnosis Primary hypertension- Primary Unspecified essential hypertension Hyperlipidemia LDL goal <130 Other and unspecified hyperlipidemia Fibromyalgia Mylagia and myositis, unspecified Heart murmur Undiagnosed cardiac murmurs Sleep apnea, unspecified type History of breast cancer in female Personal history of malignant neoplasm of breast Tubulovillous adenoma Benign neoplasm of unspecified site Vitamin D deficiency Unspecified vitamin D deficiency documented [facility] this encounter [facility]* Diagnosis Vitamin D deficiency- Primary Unspecified vitamin D deficiency documented in this encounter [facility] for referral (narrative)* Outpatient Procedure (Routine) - Authorized Specialty Diagnoses / Procedures Referred By [facility] Referred To Contact [facility] Diagnoses Functional murmur Procedures ECHO ECHO TTHRC R-T 2D W/WOM-MODE COMPL SPEC&COLR D Danial Polo MD [address] [place] [address] [facility] [address] [place] [address] Referral ID Status Reason Start Date Expiration Date Visits Requested Visits Authorized [id number] Authorized Auto-Generat ed Referral 03/22/2022 03/22/2023 1 1 * Consult, Test, Treat (Routine) - Authorized Specialty Diagnoses / Procedures Referred By [facility] Referred To Contact General Surgery Diagnoses Screening for colon cancer Procedures CONSULT TO GENERAL SURGERY OFFICE/OUTPATIENT [facility] MDM 60-74 MINUTES Danial Polo MD [address] [place] [address] Referral ID Status Reason Start Date Expiration Date Visits Requested Visits Authorized [id number] Authorized PCP Requested Referral 03/22/2022 03/22/2023 [address] [facility] for referral (narrative)* Outpatient Procedure (Routine) - Authorized Specialty Diagnoses / Procedures Referred By [facility] Referred To Contact [facility] Diagnoses Screening for colon cancer Procedures COLONOSCOPY SCREENING COLONOSCOPY FLX DX W/COLLJ SPEC WHEN Jeanette Carreon MD [address] [place] [address] [place] [id number] [place] [address] Referral ID Status Reason Start Date Expiration Date Visits Requested Visits Authorized [id number] Authorized Auto-Generat ed Referral 03/28/2022 03/28/2023 [address] [facility] for referral (narrative)* Outpatient Procedure (Routine) - Closed Specialty Diagnoses / Procedures Referred By [facility] Referred To Contact [facility] Diagnoses Screening for colon cancer Procedures COLONOSCOPY SCREENING COLONOSCOPY FLX DX W/COLLJ SPEC WHEN Jeanette Carreon MD [address] [place] [address] [address] Referral ID Status Reason Start Date Expiration Date V isits Requested Visits Authorized [id number] Closed Auto-Generate d Referral 03/28/2022 03/28/2023 [address] [facility] for referral (narrative)* Diagnostic Procedure Only (Routine) - Pending Review Specialty Diagnoses / Procedures [facility] To [facility] Diagnoses Screening breast examination Procedures BRAXTON SCREENING SCREENING MAMMOGRAPHY BI 2-VIEW BREAST INC CAD Danial Polo MD [address] [place] [address] [facility] [address] [place] [address] Referral ID Status Reason Start Date Expiration Date Visits Requested Visits Authorized [id number] Pending Review Auto-Generat ed Referral 05/25/2022 06/24/2023 [address] [facility] for referral (narrative)* Diagnostic Procedure Only (Routine) - Open Specialty Diagnoses / Procedures Referred By Esteban gaffney [facility] Diagnoses LORI (obstructive sleep apnea) Procedures HOME SLEEP APNEA TEST (HSAT) SLEEP STD AIRFLOW HRT RATE&O2 SAT EFFORT UNATT Danial Polo MD [address] [place] [address] [facility] [place] [address] Referral ID Status Reason Start Date Expiration Date V isits Requested Visits Authorized [id number] Open Auto-Generate d Referral 09/24/2022 09/24/2023 1 1 [facility] for visit Narrative* Outpatient Procedure (Routine) - Closed Specialty Diagnoses / Procedures Referred By [facility] Referred [facility] Diagnoses Screening for colon cancer Procedures COLONOSCOPY SCREENING COLONOSCOPY FLX DX W/COLLJ SPEC WHEN PFRMJeanette Ferrer MD [address] [place] [address] [facility] [id number] [place] [address] Referral ID Status Reason Start Date Expiration Date V isits Requested Visits Authorized [id number] Closed Auto-Generate d Referral 03/28/2022 03/28/2023 1 1 [facility] Summary Purpose Family History No Family History Records FoundNo Family History Records FoundNo Family History Records FoundNo Family History Records Found Advance Directives No Advanced Directives Records FoundDocuments on File Type Date Recorded 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 Automatic Expl anation Advance Directive(s) 10/19/2016 12:32 PM Documents on File Type Date Recorded 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 Automatic Expl anation Advance Directive(s) 10/19/2016 12:32 PM Medications Administered Section Inactive Administered Medications - up to 3 most recent administrations Medication Order MAR Action Action Date Dose Rate Site lactated ringers iv infusion 75 mL/hr, INTRAVENOUS, CONTINUOUS, Starting on Esperanza 04/12/22 at 0830, Until Esperanza 04/12/22 at 1030, Preprocedure New Bag/Syringe/Bottle 04/12/2022 8:15 AM EDT 75 mL/hr 75 mL/hr Reason for Referral Specialty Diagnoses / Procedures Referred By Contac t Referred To Contact Diagnoses LORI (obstructive sleep apnea) Procedures CONSULT TO SLEEP MEDICINE - ADULT OFFICE/OUTPATIENT [facility] HIGH MDM 60-74 MINUTES Danial Polo MD [address] [place] [address] Referral ID Status Reason Start Date Expiration Date Visits Requested Visits Authorized [id number] Authorized PCP Requested Referral 12/05/2022 12/05/2023 1 1 Additional Source Comments INFORMATION SOURCE (unrecogn ized section and content) DATE CREATED AUTHOR 05/27/2020 [facility] DATE CREATED AUTHOR AUTHOR'S ORGANIZ ATION 04/24/2022 [facility] DATE CREATED AUTHOR AUTHOR'S ORGANIZ ATION 12/05/[address] [facility] DATE CREATED AUTHOR AUTHOR'S ORGANIZ ATION 04/02/2024 [facility] Source Comments (unrecognize d section and content) In the event this informatio n is protected by the Federal Confidentiality of Alcohol and Drug Abuse Patient Records regulations: The Federal rules restrict any use of the information to criminally investigate or prosecute any alcohol or drug abuse patient.[facility] the event this information is protected by the Federal Confidentiality of Alcohol and Drug Abuse Patient Records regulations: The Federal rules restrict any use of the information to criminally investigate or prosecute any alcohol or drug abuse patient.[facility] the event this information is protected by the Federal Confidentiality of Alcohol and Drug Abuse Patient Records regulations: The Federal rules restrict any use of the information to criminally investigate or prosecute any alcohol or drug abuse patient.[facility] the event this information is protected by the Federal Confidentiality of Alcohol and Drug Abuse Patient Records regulations: The Federal rules restrict any use of the information to criminally investigate or prosecute any alcohol or drug abuse patient.[facility] the event this information is protected by the Federal Confidentiality of Alcohol and Drug Abuse Patient Records regulations: The Federal rules restrict any use of the information to criminally investigate or prosecute any alcohol or drug abuse patient.[facility] Center[facility] the event this information is protected by the Federal Confidentiality of Alcohol and Drug Abuse Patient Records regulations: The Federal rules restrict any use of the information to criminally investigate or prosecute any alcohol or drug abuse patient.[facility] Center[facility] the event this information is protected by the Federal Confidentiality of Alcohol and Drug Abuse Patient Records regulations: The Federal rules restrict any use of the information to criminally investigate or prosecute any alcohol or drug abuse patient.[facility] the event this information is protected by the Federal Confidentiality of Alcohol and Drug Abuse Patient Records regulations: The Federal rules restrict any use of the information to criminally investigate or prosecute any alcohol or drug abuse patient.[facility] Center[facility] the event this information is protected by the Federal Confidentiality of Alcohol and Drug Abuse Patient Records regulations: The Federal rules restrict any use of the information to criminally investigate or prosecute any alcohol or drug abuse patient.[facility] Center[facility] the event this information is protected by the Federal Confidentiality of Alcohol and Drug Abuse Patient Records regulations: The Federal rules restrict any use of the information to criminally investigate or prosecute any alcohol or drug abuse patient.[facility] Center[facility] the event this information is protected by the Federal Confidentiality of Alcohol and Drug Abuse Patient Records regulations: The Federal rules restrict any use of the information to criminally investigate or prosecute any alcohol or drug abuse patient.[facility] Center[facility] the event this information is protected by the Federal Confidentiality of Alcohol and Drug Abuse Patient Records regulations: The Federal rules restrict any use of the information to criminally investigate or prosecute any alcohol or drug abuse patient.[facility] Center[facility] the event this information is protected by the Federal Confidentiality of Alcohol and Drug Abuse Patient Records regulations: The Federal rules restrict any use of the information to criminally investigate or prosecute any alcohol or drug abuse patient.[facility] Center[facility] the event this information is protected by the Federal Confidentiality of Alcohol and Drug Abuse Patient Records regulations: The Federal rules restrict any use of the information to criminally investigate or prosecute any alcohol or drug abuse patient.[facility] Center[facility] the event this information is protected by the Federal Confidentiality of Alcohol and Drug Abuse Patient Records regulations: The Federal rules restrict any use of the information to criminally investigate or prosecute any alcohol or drug abuse patient.[facility] Center[facility] the event this information is protected by the Federal Confidentiality of Alcohol and Drug Abuse Patient Records regulations: The Federal rules restrict any use of the information to criminally investigate or prosecute any alcohol or drug abuse patient.[facility] CenterIn the event this information is protected by the Federal Confidentiality of Alcohol and Drug Abuse Patient Records regulations: The Federal rules restrict any use of the information to criminally investigate or prosecute any alcohol or drug abuse patient.[facility] CenterIn the event this information is protected by the Federal Confidentiality of Alcohol and Drug Abuse Patient Records regulations: The Federal rules restrict any use of the information to criminally investigate or prosecute any alcohol or drug abuse patient.[facility] CenterIn the event this information is protected by the Federal Confidentiality of Alcohol and Drug Abuse Patient Records regulations: The Federal rules restrict any use of the information to criminally investigate or prosecute any alcohol or drug abuse patient.[facility] CenterIn the event this information is protected by the Federal Confidentiality of Alcohol and Drug Abuse Patient Records regulations: The Federal rules restrict any use of the information to criminally investigate or prosecute any alcohol or drug abuse patient.[facility] CenterIn the event this information is protected by the Federal Confidentiality of Alcohol and Drug Abuse Patient Records regulations: The Federal rules restrict any use of the information to criminally investigate or prosecute any alcohol or drug abuse patient.[facility] CenterIn the event this information is protected by the Federal Confidentiality of Alcohol and Drug Abuse Patient Records regulations: The Federal rules restrict any use of the information to criminally investigate or prosecute any alcohol or drug abuse patient.[facility] Reason for Visit (unrecogniz ed section and content) Reason Comments Follow Up Specialty Diagnoses / Procedures Referred By Esteban gaffney Referred To Contact Diagnoses LORI (obstructive sleep apnea) Procedures CONSULT TO SLEEP MEDICINE - ADULT OFFICE/OUTPATIENT [facility] 60-74 MINUTES Danial Polo MD [address] [place] [address] Referral ID Status Reason Start Date Expiration Date V isits Requested Visits Authorized [id number] Closed PCP Requested Referral 12/05/2022 12/05/2023 1 1 Reason Comments 6 Month Exam Specialty Diagnoses / Procedures Referred By Esteban gaffney Referred To Contact Family Practice / FAMILY MEDICINE Diagnoses Follow-up examination 6 month f/u Procedures OFFICE/OUTPATIENT [facility] 30-39 MIN MD Philip Mcmullen William J, MD [address] [place] [address] Referral ID Status Reason Start Date Expiration Date Visits Requested Visits Authorized [id number] New Request Financial Clearance Required - Self Pay Patient Cleared - INN Insurance Found 03/22/2022 06/20/2022 1 1 Reason Comments Results Reason Comments Consult Colonoscopy Specialty Diagnoses / Procedures Referred By Esteban gaffney Referred To Contact General Surgery Diagnoses Screening for colon cancer Procedures CONSULT TO GENERAL SURGERY OFFICE/OUTPATIENT [facility] 60-74 MINUTES Danial Polo MD [address] [place] [address] Referral ID Status Reason Start Date Expiration Date V isits Requested Visits Authorized [id number] Closed PCP Requested Referral 03/22/2022 03/22/2023 1 1 Reason Onset Date Comments Refill Request 04/28/2022 Reason Onset Date Comments Refill Request 07/25/2022 Reason Onset Date Comments Refill Request 08/20/2022 Reason Comments 6 Month Exam Reason Comments Hypertension Bp check. Started on Losartan on 09/24/22. First couple weeks complaints of GOMEZ but no other side effects. No chest pain or shortness of breath Reason Comments Results Reason Comments Patient Question Reason Comments Hypertension recheck Fibromyalgia Medication follow up Reason Comments 6 Month Exam Care Teams (unrecognized sec tion and content) Oncology Navigator Relationship Specialty Start Date End Date Danial Polo MD [address] [facility] [place] [address] PCP - General Family Practice 08/28/21 Oncology Navigator Relationship Specialty Start Date End Date Danial Polo MD [address] [facility] [place] [address] PCP - General Family Practice 08/28/21 Oncology Navigator Relationship Specialty Start Date End Date Danial Polo MD [address] [facility] [place] [address] PCP - General Family Practice 08/28/21 Oncology Navigator Relationship Specialty Start Date End Date Danial Polo MD [address] [facility] [place] [address] PCP - General Family Practice 08/28/21 Oncology Navigator Relationship Specialty Start Date End Date Danial Polo MD [address] [facility] [place] [address] PCP - General Family Practice 08/28/21 Oncology Navigator Relationship Specialty Start Date End Date Danial Polo MD [address] [facility] [place] [address] PCP - General Family Medicine 08/28/21 Oncology Navigator Relationship Specialty Start Date End Date Danial Polo MD [address] [facility] [place] [address] PCP - General Family Medicine 08/28/21 Oncology Navigator Relationship Specialty Start Date End Date Danial Polo MD [address] [facility] [place] [address] PCP - General Family Medicine 08/28/21 Oncology Navigator Relationship Specialty Start Date End Date aDnial Polo MD [address] [facility] [place] [address] PCP - General Family Medicine 08/28/21 Oncology Navigator Relationship Specialty Start Date End Date Danial Polo MD [address] [facility] [place] [address] PCP - General Family Medicine 08/28/21 Oncology Navigator Relationship Specialty Start Date End Date Danial Polo MD [address] [facility] [place] [address] PCP - General Family Medicine 08/28/21 Oncology Navigator Relationship Specialty Start Date End Date Danial Polo MD [address] [facility] [place] [address] PCP - General Family Medicine 08/28/21 Oncology Navigator Relationship Specialty Start Date End Date Danial Polo MD [address] [facility] [place] [address] PCP - General Family Medicine 08/28/21 Oncology Navigator Relationship Specialty Start Date End Date Danial Polo MD [address] [facility] [place] [address] PCP - General Family Medicine 08/28/21 Oncology Navigator Relationship Specialty Start Date End Date Danial Polo MD [address] [facility] [place] [address] PCP - General Family Medicine 08/28/21 Oncology Navigator Relationship Specialty Start Date End Date Dnaial Polo MD [address] [facility] [place] [address] PCP - General Family Medicine 08/28/21 Oncology Navigator Relationship Specialty Start Date End Date Danial Polo MD [address] [facility] [place] [address] PCP - General Family Medicine 08/28/21 Oncology Navigator Relationship Specialty Start Date End Date Danial Polo MD [address] [place] [address] PCP - General Family Medicine 08/28/21 Oncology Navigator Relationship Specialty Start Date End Date Danial Polo MD [address] [place] [address] PCP - General Family Medicine 08/28/21 FOR RECORDS PERTAINING TO PATIENTS WHO ARE OR HAVE BEEN ENROLLED IN A CHEMICAL DEPENDENCY/SUBSTANCEABUSE PROGRAM, SOME INFORMATION MAY BE OMITTED. This clinical summary was aggregated from multiple sources. Caution should be exercised in using it in the provision of clinical care. This summary normalizes information from multiple sources, and as a consequence, information in this document may materially change the coding, format and clinical context of patient data. In addition, data may be omitted in some cases. CLINICAL DECISIONS SHOULD BE BASED ON THE PRIMARY CLINICAL RECORDS. [facility] [facility]. provides no warranty or guarantee of the accuracy or completeness of information in this document.
== END | disposition home or self-care (01) ==
PROVIDERS: PCP Family Medicine; Referring Provider Nurse Practitioner Women's Health; Visit Provider Nurse Practitioner Women's Health
DX: Z12.31 Encounter for screening mammogram for malignant neoplasm of breast (principal); Z85.3 Personal history of malignant neoplasm of breast
CPT/HCPCS: 77063; 77067

== ENCOUNTER → 2025-07-07 | Outpatient (CLI) | payer BC, SELFPAY ==
--- NOTE | 2025-07-07 13:19 | BI_ITS ---
EXAM: SCRN MAMM (CAD)W/NANCIE BILAT DATE: 07/07/2025 CLINICAL HISTORY: F, Age 59 y/o , SCREENING Personal history of breast cancer. Prior left lumpectomy and radiation treatment. TECHNIQUE: Procedure Code: [id number] Modality: MG Procedure: SCRN MAMM (CAD)W/NANCIE BILAT COMPARISON: Prior exam(s) dated June 30, 2024.. FINDINGS: TISSUE DENSITY: The breasts are heterogeneously dense, which may obscure small masses. Bilateral Breast Mammographic Findings: No significant masses, calcifications or other abnormalities are identified. The patient is status post lumpectomy in the deep upper lateral aspect of the left breast with resultant postoperative scarring and breast deformity with overlying skin thickening. Surgical clips are seen at the operative site as well as in the left axilla. No suspicious masses, areas of developing architectural distortion, or suspicious calcifications. There has been no significant interval change. BI/SCRN MAMM (CAD)W/NANCIE BILAT IMPRESSION: Stable bilateral screening mammogram. OVERALL FINAL ASSESSMENT BI-RADS 2: BENIGN RECOMMENDATION: Routine annual follow-up in 1 Year Additional Recommendation none A letter with findings and recommendations will be mailed to the patient. Reading Location: [facility]
== END | disposition home or self-care (01) ==
PROVIDERS: PCP Family Medicine; Referring Provider Family Medicine; Visit Provider Family Medicine
DX: Z12.31 Encounter for screening mammogram for malignant neoplasm of breast (principal)
CPT/HCPCS: 77063; 77067